=== PATIENT | male | born 2000 | race Caucasian/White ===

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

== ENCOUNTER 2020-07-14 19:52 | Inpatient (IN) | payer BC, OTHER ==
[~2020-07-14] VITALS: Ht 182.9 cm; Wt 64.5 kg
[2020-07-14] MEDS: K, MAG and/or Phos replacement - Verify level? MC SCH (09:00)
[~2020-07-14 19:52] MED LIST changes: +CLOB10TA3 PO; -CLOB2.5O PO; +CYAN100087 PO; +LACT10SO32 PO; -LEVO250S3 PO; +etomidate 2mg/ml inj. ONE; +rocuronium 10mg/ml inj IV ONE; +sod chloride 0.9% 10ml flush syringe IV ONE
[2020-07-14] MEDS ORDERED: levetiracetam inj 1,000 MG in normal saline 100ml IV soln 90 ML IV ONE (19:55)
[2020-07-14] MEDS ORDERED: normal saline 1000ML IV soln IVB ONE (19:55)
[2020-07-14] MEDS ORDERED: LORazepam 2 mg/ml vial IV ONE (19:55)
[2020-07-14] MEDS ORDERED: levetiracetam-NS 1000mg/100ml 100 ML IV ONE (19:57)
--- NOTE | 2020-07-14 20:03 | NUR ---
RT AND MD IN ROOM WITH SEVERAL RNS. RSI GOING TO BE PERFORMED. MD ORDERED ROCURONIUM 100MG ETOMIDATE 20 MG IV FOR RSI. PT HAS OPA IN AND BEING BVM WITH 100 % OXYGEN. HR 134 ST, RR 49 BP 134/71, SPO2 ON EAR, NOT A GOOD PLETH.
[2020-07-14] MEDS ORDERED: etomidate 2mg/ml inj. IV STA (20:06)
[2020-07-14] MEDS ORDERED: LORazepam 2 mg/ml vial IV STA (20:06)
[2020-07-14] MEDS ORDERED: rocuronium 10mg/ml inj IV STA (20:06)
[2020-07-14] MEDS ORDERED: propofol 1000mg/100ml bottle 100 ML IV PRN ×2 (20:10)
--- NOTE | 2020-07-14 20:12 | NUR ---
NOT ABLE TO VISUALIZE WITH THE GLIDESCOPE. REATTEMPTING. BEING BVM PER RT IN BETWEEN ATTEMPTS.
[2020-07-14 20:13] LABS: BASOPHILS # (AUTO) 0.1 X10'3 (0-0.2); MEAN CORPUSCULAR HEMOGLOBIN 32.7 PG (27.0-31.0); RED BLOOD COUNT 4.66 X10'6 (4.70-6.10)
[2020-07-14 20:14] LABS: BASOPHILS % (AUTO) 0.3 % (0-1); EOSINOPHILS % (AUTO) 0.1 % (0-6); HEMATOCRIT 46.2 % (42.0-52.0); HEMOGLOBIN 15.3 g/dl (14.0-17.9); LYMPHOCYTES # (AUTO) 2.2 X10'3 (1.1-4.8); LYMPHOCYTES % (AUTO) 10.5 % (21-51); MEAN CORPUSCULAR VOLUME 99.2 FL (78-98); MEAN PLATELET VOLUME 9.9 FL (7.4-10.4); MONOCYTES # (AUTO) 4.1 X10'3 (0-0.9); MONOCYTES % (AUTO) 19.8 % (2-12); NEUTROPHILS # (AUTO) 14.4 X10'3 (1.8-7.7); NEUTROPHILS % (AUTO) 69.3 % (42-75); PLATELET COUNT 272 X10'3 (140-440); WHITE BLOOD COUNT 20.8 X10'3 (4.5-11.0)
--- NOTE | 2020-07-14 20:20 | NUR ---
SPUTUM CX PER RT WILFRIDO OBTAINED. RADIOLOGY IN ROOM TO DO A CXR.
[2020-07-14] MEDS ORDERED: CefTRIAXone 2gm/D5W 50ml BAG 50 ML IV ONE (20:25)
[2020-07-14 20:27] LABS: ALANINE AMINOTRANSFERASE 15 U/L (12-78); ALBUMIN 3.5 G/DL (3.4-5.0); ALBUMIN/GLOBULIN RATIO 0.7 (1.1-1.5); ALKALINE PHOSPHATASE 67 IU/L (46-116); ANION GAP 22 (8-16); ASPARTATE AMINO TRANSFERASE 39 U/L (10-37); BILIRUBIN,TOTAL 1.3 MG/DL (0.1-1.0); BLOOD UREA NITROGEN 52 MG/DL (7-18); CALCIUM 10.3 MG/DL (8.5-10.1); CHLORIDE 105 MMOL/L (99-107); CREATININE 2.26 MG/DL (0.60-1.10); GLUCOSE 178 MG/DL (70-104); POTASSIUM 4.4 MMOL/L (3.5-5.1); SODIUM 149 MMOL/L (135-145); TOTAL CARBON DIOXIDE 22.4 MMOL/L (24-32); TOTAL PROTEIN 8.8 G/DL (6.4-8.2); eGFR 37 ML/MIN
[2020-07-14] MEDS ORDERED: normal saline 1000ml 1,000 ML IVB ONE (20:40)
[2020-07-14] MEDS ORDERED: azithromycin/NS 500mg/250ml 250 ML IV ONE (20:50)
[2020-07-14 21:00] LABS: CLARITY,URINE SLIGHTLY CLOUDY (Clear); GLUCOSE, URINE NEGATIVE (Neg); KETONES,URINE 15 mg/dl (Neg); LEUKOCYTE ESTERASE ,URINE NEGATIVE (Neg); NITRITES, URINE NEGATIVE (Neg); OCCULT BLOOD,URINE NEGATIVE (Neg); PROTEIN,URINE 100 mg/dl (Neg); UA COLLECTION TYPE FOLEY CATH
[2020-07-14 21:02] LABS: COLOR,URINE DARK YELLOW (Yellow)
[2020-07-14 21:05] LABS: ABG BASE EXCESS -6.4 mmol/L (-2.0-2.0); ABG HCO3 20.6 mmol/L (22.0-26.0); ABG OXYGEN SATURATION 94.7 % (94-97); ABG PCO2 (T) 46.6 mmHg (35.0-48.0); ABG PO2 (T) 86.2 mmHg (75.0-100.0); ALLEN'S TEST Modified; FCOHb 0.5 % (0.0-3.9); FMetHb 0.3 % (0.0-1.5); FO2Hb 93.9 % (94-97); PATIENT TEMPERATURE 37.1; PEEP 5 cm H2O; RESPIRATORY RATE 16 b/min; TIDAL VOLUME 400 mL; TOTAL HEMOGLOBIN 13.2 G/dl (14.0-18.0)
[2020-07-14 21:06] LABS: BACTERIA,URINE NONE SEEN /HPF (Neg); MUCUS STRANDS MANY /LPF (Neg); RBC,URINE NONE SEEN /HPF (0-2); SQUAMOUS EPITHELIAL CELL,UR FEW /LPF (FEW); WBC,URINE 0-4 /HPF (0-4)
[2020-07-14] MEDS ORDERED: dexamethasone sod phosphate 10mg/ml inj IV STA (21:10)
[2020-07-14 21:33] LABS: LARGE PLATELETS FEW; PLATELET ESTIMATE NORMAL; TOTAL CELLS COUNTED 100
[2020-07-14 21:34] LABS: TOXIC GRANULATION 1+; TOXIC VACUOLATION 1+
[2020-07-14] MEDS: vancomycin/NS 1 GM ADD-VANTAGE 250 ML IV SCH (21:46)
--- NOTE | 2020-07-14 22:04 | NUR ---
PATIENT RETURNED FORM CT. UNEVENTFUL. SEDATED PROPOFOL DOCUMENTED. DR MAN ATTEMPTING LUMBAR PUNCTURE. MOTHER AT BEDSIDE. RYAN WALKER IN ROOM TO ASSIST.
--- NOTE | 2020-07-14 22:06 | NUR ---
PAGED FREELANCE INTERPRETER/TRANSLATOR TO CLARIFY FLUID ORDERS FROM EARLIER TELE ICU VISIT ORDER TO BE PLACED BY FREELANCE INTERPRETER/TRANSLATOR THAT WAS GIVEN OVER TELE ICU DREliza HE IS AWARE PATIETN HAS RECEIVED 6 LITRES OF FLUID AND WILL WRITE FOR MAINTENANCE FLUID WELL REPEAT LABS.
[2020-07-14 22:21] LABS: URINE AMPHETAMINE SCREEN NEGATIVE (Neg); URINE BARBITUATE SCREEN NEGATIVE (Neg); URINE BENZODIAZEPINES SCREEN POSITIVE (Neg); URINE CANNABINOID SCREEN NEGATIVE (Neg); URINE COCAINE SCREEN NEGATIVE (Neg); URINE METHADONE SCREEN NEGATIVE (Neg); URINE OPIATE SCREEN NEGATIVE (Neg); URINE PHENCYCLIDINE SCREEN NEGATIVE (Neg)
[2020-07-14 22:42] LABS: ALBUMIN 2.2 G/DL (3.4-5.0); ANION GAP 13 (8-16); BLOOD UREA NITROGEN 45 MG/DL (7-18); BUN/CREATININE RATIO 29.6 (5.4-32.0); CREATININE 1.52 MG/DL (0.60-1.10); GLUCOSE 126 MG/DL (70-104); POTASSIUM 3.9 MMOL/L (3.5-5.1); TOTAL CARBON DIOXIDE 21.7 MMOL/L (24-32); eGFR 58 ML/MIN
[2020-07-14 22:51] LABS: SODIUM 153 MMOL/L (135-145)
[2020-07-14 22:52] LABS: CALCIUM 7.6 MG/DL (8.5-10.1); CHLORIDE 118 MMOL/L (99-107)
[2020-07-14 22:53] LABS: GLUCOSE,CSF 93 MG/DL (40-75); TOTAL PROTEIN,CSF 53 MG/DL (15-45)
[2020-07-14] MEDS ORDERED: PHENYLEPHRINE IV PRN (23:00)
[2020-07-14] MEDS ORDERED: potassium Cl 20mEq/100mL bag 100 ML IV PRN (23:00)
[2020-07-14] MEDS ORDERED: potassium Cl 40MEQ/250ML bag 250 ML IV PRN (23:00)
[2020-07-14] MEDS ORDERED: sodium phosphate inj. 15 MMOL in dextrose 5%-water 250 ML IV PRN (23:00)
[2020-07-14] MEDS ORDERED: ondansetron/PF 4mg/2ml inj IV PRN (23:00)
[2020-07-14] MEDS ORDERED: magnesium hydroxide 30ml (MOM) UD suspension PO PRN (23:00)
[2020-07-14] MEDS ORDERED: magnesium 4gm in 100ml NS 100 ML IV PRN (23:00)
[2020-07-14] MEDS ORDERED: acetaminophen 325mg tablet PO PRN ×2 (23:00)
[2020-07-14] MEDS ORDERED: magnesium 2GM in 50ml NS 50 ML IV PRN (23:00)
[2020-07-14] MEDS ORDERED: potassium CL 10mEq/100ml bag 100 ML IV PRN (23:00)
[2020-07-14] MEDS ORDERED: magnesium Cl slow-release 64mg tablet PO PRN (23:00)
[2020-07-14] MEDS ORDERED: potassium Cl 20 mEq SR tablet PO PRN ×5 (23:00)
[2020-07-14] MEDS ORDERED: NORMAL SALINE IV PRN (23:00)
[2020-07-14] MEDS ORDERED: Neutra Phos packet PO PRN (23:00)
[2020-07-14] MEDS ORDERED: sodium phosphate inj. 30 MMOL in dextrose 5%-water 250 ML IV PRN (23:00)
[2020-07-14 23:11] LABS: APPEARANCE,CSF CLEAR; CSF RBC 3 /CU MM (0); CSF SUPERNATANT COLOR COLORLESS; CSF VOLUME 7.5 ML; TUBE# COUNTED 4
[2020-07-14 23:22] LABS: CSF WBC CT 8 /CU MM (0-5)
[2020-07-14] MEDS ORDERED: ringers solution, lacted 1,000 ML IV ONE (23:55)
[2020-07-15] VITALS (27 sets, daily range): BP systolic 91–113; BP diastolic 47–74
[2020-07-15 00:15] LABS: PHOSPHORUS 6.3 MG/DL (2.3-4.5)
[2020-07-15] MEDS: propofol 1000mg/100ml bottle 100 ML IV SCH (00:41)
--- NOTE | 2020-07-15 00:45 | NUR ---
Patient in room CICU 2007. I have received report from JOSEPH Matthews,RN and had the opportunity to ask questions and assume patient care. Patient received from ER accompanied by 2RNs and preparatory technician. Patient on vent and has propofol running at 5mcg/kg/min. BP 99/64MMHG. Full assessment done as per chart. NG tube inserted and verified by 2 RNS and clamped.
[2020-07-15 04:34] LABS: ABG BASE EXCESS -3.8 mmol/L (-2.0-2.0); ABG HCO3 22.4 mmol/L (22.0-26.0); ABG OXYGEN SATURATION 91.9 % (94-97); ABG PO2 (T) 68.1 mmHg (75.0-100.0); FCOHb 0.3 % (0.0-3.9); FMetHb 0.4 % (0.0-1.5); FO2Hb 91.3 % (94-97); PATIENT TEMPERATURE 37.2; PEEP 5 cm H2O; RESPIRATORY RATE 16 b/min; TIDAL VOLUME 400 mL; TOTAL HEMOGLOBIN 12.1 G/dl (14.0-18.0)
[2020-07-15 06:27] LABS: BASOPHILS % (AUTO) 0.1 % (0-1); EOSINOPHILS % (AUTO) 0 % (0-6); HEMATOCRIT 36.1 % (42.0-52.0); HEMOGLOBIN 11.7 g/dl (14.0-17.9); LYMPHOCYTES # (AUTO) 1.1 X10'3 (1.1-4.8); LYMPHOCYTES % (AUTO) 9.1 % (21-51); MEAN CORPUSCULAR HEMOGLOBIN 32.8 PG (27.0-31.0); MEAN CORPUSCULAR HGB CONC 32.3 g/dL (33.0-36.5); MEAN CORPUSCULAR VOLUME 101.6 FL (78-98); MONOCYTES # (AUTO) 1.5 X10'3 (0-0.9); MONOCYTES % (AUTO) 12.1 % (2-12); NEUTROPHILS # (AUTO) 9.8 X10'3 (1.8-7.7); NEUTROPHILS % (AUTO) 78.7 % (42-75); PLATELET COUNT 179 X10'3 (140-440); RED BLOOD COUNT 3.56 X10'6 (4.70-6.10); RED CELL DISTRIBUTION WIDTH 13.5 % (11.5-14.5); WHITE BLOOD COUNT 12.5 X10'3 (4.5-11.0)
[2020-07-15 06:38] LABS: ALANINE AMINOTRANSFERASE 11 U/L (12-78); ALBUMIN 2.1 G/DL (3.4-5.0); ALBUMIN/GLOBULIN RATIO 0.6 (1.1-1.5); ALKALINE PHOSPHATASE 36 IU/L (46-116); ANION GAP 9 (8-16); ASPARTATE AMINO TRANSFERASE 25 U/L (10-37); BILIRUBIN,TOTAL 0.4 MG/DL (0.1-1.0); BLOOD UREA NITROGEN 31 MG/DL (7-18); BUN/CREATININE RATIO 32.3 (5.4-32.0); CALCIUM 7.9 MG/DL (8.5-10.1); CHLORIDE 118 MMOL/L (99-107); CREATININE 0.96 MG/DL (0.60-1.10); GLUCOSE 141 MG/DL (70-104); PHOSPHORUS 2.1 MG/DL (2.3-4.5); POTASSIUM 4.1 MMOL/L (3.5-5.1); SODIUM 151 MMOL/L (135-145); TOTAL CARBON DIOXIDE 24.5 MMOL/L (24-32); TOTAL PROTEIN 5.6 G/DL (6.4-8.2); TRIGLYCERIDES 58 MG/DL (20-135); eGFR > 90 ML/MIN
[2020-07-15] MEDS: vancomycin/NS 1 GM ADD-VANTAGE 250 ML IV SCH ×2 (07:28→20:02)
[2020-07-15] MEDS: famotidine/PF 10 mg/ml inj IV SCH (07:28)
[2020-07-15] MEDS: levetiracetam-NS 1000mg/100ml 100 ML IV SCH ×2 (07:28→20:02)
[2020-07-15 07:42] LABS: LARGE PLATELETS FEW; PLATELET ESTIMATE NORMAL; TOTAL CELLS COUNTED 100; TOXIC GRANULATION 1+; TOXIC VACUOLATION 1+
[2020-07-15] MEDS ORDERED: docusate sod 100mg capsule PO SCH (08:00)
[2020-07-15] MEDS: K, MAG and/or Phos replacement - Verify level? MC SCH (08:00)
[2020-07-15] MEDS ORDERED: K and/or MAG REPLACEMENT MC SCH (08:00)
[2020-07-15] MEDS: sodium chloride 0.45% 1,000 ML IV SCH ×3 (10:07→23:44)
[2020-07-15] MEDS ORDERED: docusate sodium 100mg/10ml UD cup PO SCH (10:40)
[2020-07-15] MEDS ORDERED: LACT10SO3 PO (10:48)
[2020-07-15] MEDS ORDERED: CYAN100087 PO (10:57)
[2020-07-15] MEDS ORDERED: DIAZ1KIT PR ×3 (11:00→11:03)
[2020-07-15] MEDS ORDERED: HEMP OIL SL (11:04)
[2020-07-15] MEDS: docusate sodium 100mg/10ml UD cup PO SCH ×2 (11:37→20:03)
[2020-07-15] MEDS: dexmedetomidine/D5W 100mL 100 ML IV SCH (12:20)
--- NOTE | 2020-07-15 16:09 | NUR ---
Intubated, sedated, presenting with seizures. No TF consult yet. Per MD note possible aspiration and right sided infiltrates. Will follow. Recommend: 1. TF if prolonged intubation 2. When extubated, recommend BSS prior to diet advancement 3. Weight per rx Addendum: 07/15/20 at [address] Amended: Links added.
[2020-07-15] MEDS ORDERED: atropine 0.1mg/ml 10ml syringe ONE (17:35)
--- NOTE | 2020-07-15 18:25 | NUR ---
Patient in room CICU 2007. I have received report from DENISE Foster and had the opportunity to ask questions and assume patient care.
--- NOTE | 2020-07-15 18:27 | NUR ---
Problems reprioritized. Patient report given, questions answered & plan of care reviewed with DENISE Torre.
[2020-07-15] MEDS: azithromycin/NS 500mg/250ml 250 ML IV SCH (20:02)
[2020-07-15] MEDS: lactobacillus rhamnosus 10,000 MMU CELLS/CAPSULE PO SCH (20:03)
[2020-07-15] MEDS: CefTRIAXone/D5W-Rocephin 1gm 50 ML IV SCH (21:23)
[2020-07-15] MEDS: sennosides/docusate sodium tablet PO SCH (21:23)
[2020-07-15] MEDS: LORazepam 2 mg/ml vial IV PRN (23:37)
--- NOTE | 2020-07-15 23:45 | NUR ---
Patient observed having a seizure lasting 1 and half minutes. Patient settled after receiving Ativan 2mg as per EMAR.
[2020-07-16] VITALS (23 sets, daily range): BP systolic 89–104; BP diastolic 51–66
[2020-07-16] MEDS: mineral oil/petrolatum ophthal oint EACHEYE SCH ×4 (02:17→22:05)
[2020-07-16 02:31] LABS: BASOPHILS % (AUTO) 0.2 % (0-1); EOSINOPHILS % (AUTO) 0 % (0-6); HEMATOCRIT 32.4 % (42.0-52.0); HEMOGLOBIN 10.6 g/dl (14.0-17.9); LYMPHOCYTES # (AUTO) 2.1 X10'3 (1.1-4.8); LYMPHOCYTES % (AUTO) 11.6 % (21-51); MEAN CORPUSCULAR HEMOGLOBIN 32.6 PG (27.0-31.0); MEAN CORPUSCULAR HGB CONC 32.7 g/dL (33.0-36.5); MEAN CORPUSCULAR VOLUME 99.5 FL (78-98); MEAN PLATELET VOLUME 10.6 FL (7.4-10.4); MONOCYTES # (AUTO) 1.7 X10'3 (0-0.9); MONOCYTES % (AUTO) 9.7 % (2-12); NEUTROPHILS # (AUTO) 14.1 X10'3 (1.8-7.7); NEUTROPHILS % (AUTO) 78.5 % (42-75); PLATELET COUNT 154 X10'3 (140-440); RED BLOOD COUNT 3.26 X10'6 (4.70-6.10); WHITE BLOOD COUNT 17.9 X10'3 (4.5-11.0)
[2020-07-16 02:38] LABS: ALANINE AMINOTRANSFERASE 16 U/L (12-78); ALBUMIN 1.9 G/DL (3.4-5.0); ALBUMIN/GLOBULIN RATIO 0.6 (1.1-1.5); ALKALINE PHOSPHATASE 34 IU/L (46-116); ANION GAP 10 (8-16); ASPARTATE AMINO TRANSFERASE 25 U/L (10-37); BILIRUBIN,TOTAL 0.4 MG/DL (0.1-1.0); BLOOD UREA NITROGEN 18 MG/DL (7-18); BUN/CREATININE RATIO 27.3 (5.4-32.0); CALCIUM 8.8 MG/DL (8.5-10.1); CHLORIDE 112 MMOL/L (99-107); CREATININE 0.66 MG/DL (0.60-1.10); GLUCOSE 129 MG/DL (70-104); MAGNESIUM 1.9 MG/DL (1.5-2.4); PHOSPHORUS 1.3 MG/DL (2.3-4.5); POTASSIUM 3.7 MMOL/L (3.5-5.1); SODIUM 144 MMOL/L (135-145); TOTAL PROTEIN 5.2 G/DL (6.4-8.2); eGFR > 90 ML/MIN
[2020-07-16] MEDS: magnesium 2GM in 50ml NS 50 ML IV PRN ×2 (03:24→05:53)
[2020-07-16 03:25] LABS: ABG BASE EXCESS -1.4 mmol/L (-2.0-2.0); ABG HCO3 21.4 mmol/L (22.0-26.0); ABG OXYGEN SATURATION 98.5 % (94-97); ABG PCO2 (T) 29.5 mmHg (35.0-48.0); ABG PO2 (T) 133.3 mmHg (75.0-100.0); FCOHb 0.2 % (0.0-3.9); FMetHb 0.3 % (0.0-1.5); PATIENT TEMPERATURE 36.6; PEEP 5 cm H2O; RESPIRATORY RATE 20 b/min; TIDAL VOLUME 400 mL; TOTAL HEMOGLOBIN 11.3 G/dl (14.0-18.0)
[2020-07-16] MEDS: potassium Cl 40MEQ/1/2NS 520ml 520 ML IV PRN (03:32)
--- NOTE | 2020-07-16 05:43 | NUR ---
Patient observed having a seizure lasting 2 minutes. Patient settled after receiving Ativan 2mg as per EMAR. Dr informed during rounds.
[2020-07-16] MEDS: LORazepam 2 mg/ml vial IV PRN ×4 (05:44→23:30)
[2020-07-16] MEDS: sodium chloride 0.45% 1,000 ML IV SCH ×3 (05:45→20:15)
[2020-07-16] MEDS: dexmedetomidine/D5W 100mL 100 ML IV SCH ×2 (06:04→12:21)
[2020-07-16 06:49] LABS: LARGE PLATELETS FEW; NUCLEATED RED BLOOD CELLS 2 /100WBC (0-0); PLATELET ESTIMATE NORMAL; TOTAL CELLS COUNTED 100; TOXIC GRANULATION 1+; TOXIC VACUOLATION 1+
[2020-07-16] MEDS ORDERED: VANCOMYCIN LEVEL IV ONE (07:30)
[2020-07-16] MEDS: levetiracetam-NS 1000mg/100ml 100 ML IV SCH (07:43)
[2020-07-16] MEDS: lactobacillus rhamnosus 10,000 MMU CELLS/CAPSULE PO SCH ×2 (07:43→22:18)
[2020-07-16] MEDS: famotidine/PF 10 mg/ml inj IV SCH (07:43)
[2020-07-16] MEDS: docusate sodium 100mg/10ml UD cup PO SCH ×2 (07:43→22:05)
[2020-07-16] MEDS: vancomycin/NS 1 GM ADD-VANTAGE 250 ML IV SCH ×2 (08:25→22:05)
[2020-07-16 08:57] LABS: VANCOMYCIN,TROUGH 5.9 UG/ML (6.0-14.0)
[2020-07-16] MEDS: K, MAG and/or Phos replacement - Verify level? MC SCH (08:58)
[2020-07-16] MEDS ORDERED: sodium phosphate inj. 15 MMOL in dextrose 5%-water 250 ML IV PRN (10:45)
[2020-07-16] MEDS ORDERED: sodium phosphate inj. 30 MMOL in dextrose 5%-water 250 ML IV PRN (10:45)
[2020-07-16] MEDS ORDERED: Neutra Phos packet PO PRN (10:45)
[2020-07-16] MEDS ORDERED: valproate sod 250mg/5ml UD oral syrup NG ONE ×2 (10:50→11:10)
[2020-07-16 11:02] LABS: PHOSPHORUS 1.7 MG/DL (2.3-4.5)
[2020-07-16] MEDS ORDERED: valproate sod 250mg/5ml UD oral syrup NG SCH ×3 (12:00→20:00)
[2020-07-16] MEDS: valproate sod 250mg/5ml UD oral syrup NG SCH (17:29)
--- NOTE | 2020-07-16 18:33 | NUR ---
Problems reprioritized. Patient report given, questions answered & plan of care reviewed with DENISE Pickering.
[2020-07-16] MEDS: azithromycin/NS 500mg/250ml 250 ML IV SCH (20:59)
[2020-07-16] MEDS: sennosides/docusate sodium tablet PO SCH (22:05)
[2020-07-16] MEDS: CefTRIAXone/D5W-Rocephin 1gm 50 ML IV SCH (22:06)
[2020-07-16] MEDS ORDERED: bisacodyl 10mg suppository rectal RC PRN (23:00)
[2020-07-16] MEDS: propofol 1000mg/100ml bottle 100 ML IV SCH (23:00)
[2020-07-16] MEDS ORDERED: polyethylene glycol 3350 17gm powd pack PO PRN (23:00)
[2020-07-17] VITALS (24 sets, daily range): BP systolic 89–102; BP diastolic 53–64
[2020-07-17] MEDS: valproate sod 250mg/5ml UD oral syrup NG SCH ×3 (00:09→16:21)
[2020-07-17] MEDS ORDERED: LORazepam 2 mg/ml vial IV ONE (02:35)
[2020-07-17] MEDS: LORazepam 2 mg/ml vial IV PRN ×5 (02:44→22:17)
[2020-07-17] MEDS: mineral oil/petrolatum ophthal oint EACHEYE SCH ×4 (02:49→21:01)
[2020-07-17 03:53] LABS: ABG BASE EXCESS -1.8 mmol/L (-2.0-2.0); ABG HCO3 21.9 mmol/L (22.0-26.0); ABG OXYGEN SATURATION 96.6 % (94-97); ABG PCO2 (T) 33.2 mmHg (35.0-48.0); ABG PO2 (T) 88.4 mmHg (75.0-100.0); ALLEN'S TEST POSITIVE; FCOHb 0.3 % (0.0-3.9); FMetHb 0.2 % (0.0-1.5); FO2Hb 96.1 % (94-97); PATIENT TEMPERATURE 36.7; PEEP 5 cm H2O; RESPIRATORY RATE 16 b/min; TIDAL VOLUME 400 mL; TOTAL HEMOGLOBIN 11.8 G/dl (14.0-18.0)
[2020-07-17] MEDS: dexmedetomidine/D5W 100mL 100 ML IV SCH ×2 (05:27→22:39)
[2020-07-17 06:03] LABS: BASOPHILS # (AUTO) 0.1 X10'3 (0-0.2); BASOPHILS % (AUTO) 0.6 % (0-1); EOSINOPHILS # (AUTO) 0.1 X10'3 (0-0.9); EOSINOPHILS % (AUTO) 0.6 % (0-6); HEMATOCRIT 38.1 % (42.0-52.0); HEMOGLOBIN 12.4 g/dl (14.0-17.9); MEAN CORPUSCULAR HEMOGLOBIN 32.6 PG (27.0-31.0); MEAN CORPUSCULAR HGB CONC 32.5 g/dL (33.0-36.5); MEAN CORPUSCULAR VOLUME 100.1 FL (78-98); MONOCYTES # (AUTO) 1.4 X10'3 (0-0.9); MONOCYTES % (AUTO) 7.2 % (2-12); NEUTROPHILS # (AUTO) 14.2 X10'3 (1.8-7.7); NEUTROPHILS % (AUTO) 75.6 % (42-75); PLATELET COUNT 190 X10'3 (140-440); RED BLOOD COUNT 3.81 X10'6 (4.70-6.10); RED CELL DISTRIBUTION WIDTH 13.3 % (11.5-14.5); WHITE BLOOD COUNT 18.8 X10'3 (4.5-11.0)
[2020-07-17 06:10] LABS: GLUCOSE 92 MG/DL (70-104); SODIUM 144 MMOL/L (135-145)
[2020-07-17 06:11] LABS: ALANINE AMINOTRANSFERASE 10 U/L (12-78); ALBUMIN 1.9 G/DL (3.4-5.0); ALBUMIN/GLOBULIN RATIO 0.5 (1.1-1.5); ALKALINE PHOSPHATASE 43 IU/L (46-116); ANION GAP 10 (8-16); ASPARTATE AMINO TRANSFERASE 23 U/L (10-37); BILIRUBIN,TOTAL 0.3 MG/DL (0.1-1.0); BLOOD UREA NITROGEN 11 MG/DL (7-18); CALCIUM 8.3 MG/DL (8.5-10.1); CHLORIDE 110 MMOL/L (99-107); CREATININE 0.61 MG/DL (0.60-1.10); MAGNESIUM 1.9 MG/DL (1.5-2.4); PHOSPHORUS 2.4 MG/DL (2.3-4.5); POTASSIUM 3.4 MMOL/L (3.5-5.1); TOTAL CARBON DIOXIDE 24.4 MMOL/L (24-32); TOTAL PROTEIN 5.4 G/DL (6.4-8.2); eGFR > 90 ML/MIN
--- NOTE | 2020-07-17 06:30 | NUR ---
Patient in room CICU 2007. I have received report from DENISE Pickering and had the opportunity to ask questions and assume patient care.
[2020-07-17] MEDS ORDERED: VANCOMYCIN LEVEL IV ONE (07:30)
[2020-07-17] MEDS: K, MAG and/or Phos replacement - Verify level? MC SCH (08:00)
[2020-07-17] MEDS ORDERED: vancomycin/NS 1 GM ADD-VANTAGE 250 ML IV SCH (08:00)
[2020-07-17] MEDS: sodium chloride 0.45% 1,000 ML IV SCH (08:13)
[2020-07-17] MEDS: docusate sodium 100mg/10ml UD cup PO SCH (09:06)
[2020-07-17] MEDS: vancomycin/NS 1 GM ADD-VANTAGE 250 ML IV SCH (09:06)
[2020-07-17] MEDS: lactobacillus rhamnosus 10,000 MMU CELLS/CAPSULE PO SCH (09:06)
[2020-07-17] MEDS: famotidine/PF 10 mg/ml inj IV SCH (09:09)
--- NOTE | 2020-07-17 09:24 | NUR ---
Pt had tonic-clonic seizure 3 min duration, pupils dilated L 5mm right 4 mm, arms contacted, back arched, left upward gaze. 2 mg ativan administered.
--- NOTE | 2020-07-17 10:00 | NUR ---
Pt had another tonic clonic seizure seizure 3 mins in duration. Pupils dilated left, 5mm greater than right 5mm. Reactive to light and consensual. Left upward gaze. Dr Rodriguez aware.
[2020-07-17] MEDS ORDERED: phenobarbital sod 130mg/ml inj. IV ONE (10:55)
[2020-07-17 11:19] LABS: TOTAL CELLS COUNTED 100
[2020-07-17 11:20] LABS: PLATELET ESTIMATE NORMAL; STOMATOCYTES FEW; TEAR DROP CELLS FEW
[2020-07-17 11:21] LABS: LARGE PLATELETS FEW
[2020-07-17] MEDS ORDERED: magnesium 2GM in 50ml NS 50 ML IV ONE (11:50)
[2020-07-17] MEDS: enoxaparin 40mg/0.4ml syringe SUBCUT SCH (11:56)
--- NOTE | 2020-07-17 11:59 | NUR ---
TF Consult: Pt intubated DX status epilepticus, PNA, and pneumonitis w/ TF to start today per production sorter. TF recs below using IBW to optimize needs w/ chronic low wt status. LBM 3/3 receiving routine colace and senna. Will monitor for TF tolerance and additional protein/kcal needs. Recommend: 1. NGTF per MD using Vital AF at 75ml/hr goal; to provide 1800ml volume, 1458ml free water, 2160kcals, and 135g protein. 2. additional water flush 200ml Q4 3. PALB Q /; daily wts 4. Upon extubation, recommend BSS prior to regular diet advancement Addendum: 07/17/20 at [address] Amended: Links added.
--- NOTE | 2020-07-17 12:00 | NUR ---
Pt experienced another tonic clonic seizure 2 mins, dilated pupils left 5 mm, right 4 mm. contracted extremities, rapid respiratory rate. phenobarbitol loading dose administered.
--- NOTE | 2020-07-17 12:18 | NUR ---
Pt experienced another tonic clonic seizure 2 mins, dilated pupils left 5 mm, right 4 mm. contracted extremities, rapid respiratory rate. phenobarbitol loading dose administered.
[2020-07-17] MEDS ORDERED: acetaminophen 325mg/10.15ml oral unit dose solution OGT PRN ×2 (12:35)
[2020-07-17] MEDS ORDERED: magnesium hydroxide 30ml (MOM) UD suspension OGT PRN (12:41)
[2020-07-17] MEDS ORDERED: Neutra Phos packet OGT PRN (12:43)
[2020-07-17] MEDS ORDERED: phenobarbital 30mg tablet PO SCH (13:00)
[2020-07-17] MEDS ORDERED: polyethylene glycol 3350 17gm powd pack OGT PRN (14:11)
[2020-07-17] MEDS ORDERED: potassium Cl 20 mEq SR tablet OGT PRN ×2 (14:11)
[2020-07-17] MEDS ORDERED: valproate sod 250mg/5ml UD oral syrup OGT SCH (14:12)
--- NOTE | 2020-07-17 18:18 | NUR ---
Problems reprioritized. Patient report given, questions answered & plan of care reviewed with DENISE Pickering.
[2020-07-17] MEDS ORDERED: enoxaparin 30mg/0.3ml syringe SUBCUT SCH (20:00)
[2020-07-17] MEDS: lactobacillus rhamnosus 10,000 MMU CELLS/CAPSULE OGT SCH (21:00)
[2020-07-17] MEDS: CefTRIAXone/D5W-Rocephin 1gm 50 ML IV SCH (21:00)
[2020-07-17] MEDS: docusate sodium 100mg/10ml UD cup OGT SCH (21:00)
[2020-07-17] MEDS: phenobarbital 30mg tablet OGT SCH (21:00)
[2020-07-17] MEDS: azithromycin/NS 500mg/250ml 250 ML IV SCH (21:00)
[2020-07-17] MEDS: sennosides/docusate sodium tablet OGT SCH (21:00)
[2020-07-17] MEDS: VANCOmycin 1250MG/NS 250ml Bag 250 ML IV SCH (21:01)
[2020-07-17] MEDS ORDERED: POTASSIUM BICARB 20meq eff tab 20 MEQ TABLET.EFF OGT PRN (21:25)
[2020-07-18] VITALS (24 sets, daily range): BP systolic 93–130; BP diastolic 50–85
[2020-07-18] MEDS: POTASSIUM BICARB 20meq eff tab 20 MEQ TABLET.EFF OGT PRN ×2 (00:01→05:03)
[2020-07-18] MEDS: valproate sod 250mg/5ml UD oral syrup NG SCH ×3 (00:06→16:58)
[2020-07-18 03:22] LABS: ABG BASE EXCESS 1.3 mmol/L (-2.0-2.0); ABG HCO3 26.5 mmol/L (22.0-26.0); ABG OXYGEN SATURATION 97.4 % (94-97); ABG PCO2 (T) 43.7 mmHg (35.0-48.0); ABG PO2 (T) 99.5 mmHg (75.0-100.0); ALLEN'S TEST POSITIVE; FCOHb 0.3 % (0.0-3.9); FMetHb 0.2 % (0.0-1.5); FO2Hb 96.9 % (94-97); PATIENT TEMPERATURE 36.7; PEEP 5 cm H2O; RESPIRATORY RATE 12 b/min; TIDAL VOLUME 400 mL; TOTAL HEMOGLOBIN 11.7 G/dl (14.0-18.0)
[2020-07-18] MEDS: mineral oil/petrolatum ophthal oint EACHEYE SCH ×4 (05:02→21:34)
[2020-07-18 06:11] LABS: BASOPHILS # (AUTO) 0.1 X10'3 (0-0.2); BASOPHILS % (AUTO) 0.4 % (0-1); EOSINOPHILS # (AUTO) 0.4 X10'3 (0-0.9); EOSINOPHILS % (AUTO) 2.5 % (0-6); HEMATOCRIT 34.5 % (42.0-52.0); HEMOGLOBIN 11.3 g/dl (14.0-17.9); LYMPHOCYTES # (AUTO) 2.9 X10'3 (1.1-4.8); LYMPHOCYTES % (AUTO) 19.6 % (21-51); MEAN CORPUSCULAR HEMOGLOBIN 32.8 PG (27.0-31.0); MEAN CORPUSCULAR HGB CONC 32.8 g/dL (33.0-36.5); MEAN CORPUSCULAR VOLUME 99.8 FL (78-98); MEAN PLATELET VOLUME 11.1 FL (7.4-10.4); MONOCYTES # (AUTO) 1.4 X10'3 (0-0.9); MONOCYTES % (AUTO) 9.5 % (2-12); PLATELET COUNT 208 X10'3 (140-440); RED BLOOD COUNT 3.46 X10'6 (4.70-6.10); WHITE BLOOD COUNT 14.7 X10'3 (4.5-11.0)
[2020-07-18 06:12] LABS: ALANINE AMINOTRANSFERASE 13 U/L (12-78); ALBUMIN 1.7 G/DL (3.4-5.0); ALBUMIN/GLOBULIN RATIO 0.5 (1.1-1.5); ALKALINE PHOSPHATASE 44 IU/L (46-116); ANION GAP 8 (8-16); ASPARTATE AMINO TRANSFERASE 13 U/L (10-37); BILIRUBIN,TOTAL 0.3 MG/DL (0.1-1.0); BLOOD UREA NITROGEN 4 MG/DL (7-18); CALCIUM 8.6 MG/DL (8.5-10.1); CHLORIDE 109 MMOL/L (99-107); CREATININE 0.57 MG/DL (0.60-1.10); GLUCOSE 86 MG/DL (70-104); MAGNESIUM 1.8 MG/DL (1.5-2.4); PHOSPHORUS 3.7 MG/DL (2.3-4.5); PREALBUMIN 11.9 MG/DL (19-36); SODIUM 145 MMOL/L (135-145); TOTAL CARBON DIOXIDE 28.4 MMOL/L (24-32); TOTAL PROTEIN 5.2 G/DL (6.4-8.2); VALPROATE 51 UG/ML (50-100); eGFR > 90 ML/MIN
[2020-07-18 06:16] LABS: POTASSIUM 2.9 MMOL/L (3.5-5.1)
[2020-07-18] MEDS: potassium Cl 40MEQ/1/2NS 520ml 520 ML IV PRN ×2 (06:50→11:51)
[2020-07-18] MEDS: K, MAG and/or Phos replacement - Verify level? MC SCH (08:00)
[2020-07-18] MEDS: LORazepam 2 mg/ml vial IV PRN ×2 (08:15→12:06)
[2020-07-18] MEDS: phenobarbital 30mg tablet OGT SCH ×3 (08:34→21:31)
[2020-07-18] MEDS: famotidine/PF 10 mg/ml inj IV SCH (08:34)
[2020-07-18] MEDS: lactobacillus rhamnosus 10,000 MMU CELLS/CAPSULE OGT SCH ×2 (08:34→21:31)
[2020-07-18] MEDS: VANCOmycin 1250MG/NS 250ml Bag 250 ML IV SCH ×2 (08:34→21:31)
[2020-07-18] MEDS: docusate sodium 100mg/10ml UD cup OGT SCH ×2 (08:34→21:31)
[2020-07-18] MEDS: enoxaparin 40mg/0.4ml syringe SUBCUT SCH (08:35)
[2020-07-18 09:55] LABS: NUCLEATED RED BLOOD CELLS 1 /100WBC (0-0); TOTAL CELLS COUNTED 100
[2020-07-18 09:56] LABS: PLATELET ESTIMATE NORMAL
[2020-07-18] MEDS ORDERED: DIAZEPAM PR PRN (10:40)
[2020-07-18] MEDS ORDERED: lactulose 20gm/30ml cup PO PRN (10:40)
[2020-07-18] MEDS: dexmedetomidine/D5W 100mL 100 ML IV SCH (11:53)
[2020-07-18] MEDS: midazolam 100mg in NS 100ml 100 ML IV SCH ×2 (12:21→21:10)
[2020-07-18] MEDS ORDERED: valproate sod 250mg/5ml UD oral syrup PO SCH ×2 (13:00→21:50)
--- NOTE | 2020-07-18 18:30 | NUR ---
Patient in room CICU 2007. I have received report from JESU WALKER and had the opportunity to ask questions and assume patient care.
[2020-07-18] MEDS ORDERED: HEMP OIL SL SCH (21:00)
[2020-07-18] MEDS: azithromycin/NS 500mg/250ml 250 ML IV SCH (21:31)
[2020-07-18] MEDS: CefTRIAXone/D5W-Rocephin 1gm 50 ML IV SCH (21:31)
[2020-07-18] MEDS: sennosides/docusate sodium tablet OGT SCH (21:31)
[2020-07-18] MEDS: propofol 1000mg/100ml bottle 100 ML IV SCH (22:38)
[2020-07-19] VITALS (23 sets, daily range): BP systolic 108–155; BP diastolic 61–88
[2020-07-19] MEDS: mineral oil/petrolatum ophthal oint EACHEYE SCH ×4 (02:42→20:00)
[2020-07-19] MEDS: midazolam 100mg in NS 100ml 100 ML IV SCH ×3 (02:43→19:27)
[2020-07-19 03:01] LABS: ABG HCO3 25.3 mmol/L (22.0-26.0); ABG OXYGEN SATURATION 96.8 % (94-97); ABG PCO2 (T) 36.4 mmHg (35.0-48.0); ABG PO2 (T) 92.3 mmHg (75.0-100.0); ALLEN'S TEST POSITIVE; FCOHb 0.3 % (0.0-3.9); FMetHb 0.2 % (0.0-1.5); FO2Hb 96.3 % (94-97); PATIENT TEMPERATURE 37.7; PEEP 5 cm H2O; RESPIRATORY RATE 12 b/min; TIDAL VOLUME 400 mL; TOTAL HEMOGLOBIN 12.3 G/dl (14.0-18.0)
[2020-07-19] MEDS: valproate sod 250mg/5ml UD oral syrup NG SCH ×3 (04:56→20:04)
--- NOTE | 2020-07-19 06:51 | NUR ---
Problems reprioritized. Patient report given, questions answered & plan of care reviewed with LAURA WALKER.
[2020-07-19] MEDS: LORazepam 2 mg/ml vial IV PRN ×2 (06:56→11:45)
[2020-07-19] MEDS: lactobacillus rhamnosus 10,000 MMU CELLS/CAPSULE OGT SCH ×2 (07:22→20:03)
[2020-07-19] MEDS: phenobarbital 30mg tablet OGT SCH ×3 (07:23→20:04)
[2020-07-19] MEDS: famotidine/PF 10 mg/ml inj IV SCH (07:23)
[2020-07-19] MEDS: cyanocobalamin 500mcg tablet PO SCH (07:23)
[2020-07-19] MEDS: enoxaparin 40mg/0.4ml syringe SUBCUT SCH (07:24)
[2020-07-19] MEDS ORDERED: VANCOMYCIN LEVEL IV ONE (07:30)
[2020-07-19] MEDS: docusate sodium 100mg/10ml UD cup OGT SCH ×2 (07:54→20:03)
[2020-07-19] MEDS: K, MAG and/or Phos replacement - Verify level? MC SCH (08:00)
[2020-07-19 08:31] LABS: BASOPHILS % (AUTO) 0.3 % (0-1); EOSINOPHILS # (AUTO) 0.2 X10'3 (0-0.9); EOSINOPHILS % (AUTO) 1.1 % (0-6); HEMATOCRIT 36.6 % (42.0-52.0); HEMOGLOBIN 11.9 g/dl (14.0-17.9); LYMPHOCYTES # (AUTO) 2.4 X10'3 (1.1-4.8); LYMPHOCYTES % (AUTO) 14.2 % (21-51); MEAN CORPUSCULAR HEMOGLOBIN 32.2 PG (27.0-31.0); MEAN CORPUSCULAR HGB CONC 32.6 g/dL (33.0-36.5); MEAN CORPUSCULAR VOLUME 98.6 FL (78-98); MEAN PLATELET VOLUME 10.5 FL (7.4-10.4); MONOCYTES # (AUTO) 2.1 X10'3 (0-0.9); MONOCYTES % (AUTO) 12.4 % (2-12); PLATELET COUNT 251 X10'3 (140-440); RED BLOOD COUNT 3.71 X10'6 (4.70-6.10); RED CELL DISTRIBUTION WIDTH 13.2 % (11.5-14.5); WHITE BLOOD COUNT 16.6 X10'3 (4.5-11.0)
[2020-07-19 08:52] LABS: ALANINE AMINOTRANSFERASE 16 U/L (12-78); ALBUMIN 2.2 G/DL (3.4-5.0); ALBUMIN/GLOBULIN RATIO 0.6 (1.1-1.5); ALKALINE PHOSPHATASE 55 IU/L (46-116); ANION GAP 9 (8-16); ASPARTATE AMINO TRANSFERASE 15 U/L (10-37); BILIRUBIN,TOTAL 0.2 MG/DL (0.1-1.0); BLOOD UREA NITROGEN 5 MG/DL (7-18); BUN/CREATININE RATIO 8.2 (5.4-32.0); CALCIUM 9.1 MG/DL (8.5-10.1); CHLORIDE 104 MMOL/L (99-107); CREATININE 0.61 MG/DL (0.60-1.10); GLUCOSE 114 MG/DL (70-104); MAGNESIUM 1.9 MG/DL (1.5-2.4); PHOSPHORUS 3.8 MG/DL (2.3-4.5); POTASSIUM 3.4 MMOL/L (3.5-5.1); SODIUM 141 MMOL/L (135-145); TOTAL CARBON DIOXIDE 27.9 MMOL/L (24-32); TOTAL PROTEIN 6.2 G/DL (6.4-8.2); eGFR > 90 ML/MIN
[2020-07-19] MEDS: VANCOmycin 1250MG/NS 250ml Bag 250 ML IV SCH (09:13)
[2020-07-19 09:24] LABS: TOTAL CELLS COUNTED 100
[2020-07-19 09:25] LABS: PLATELET ESTIMATE NORMAL
[2020-07-19] MEDS: POTASSIUM BICARB 20meq eff tab 20 MEQ TABLET.EFF OGT PRN ×3 (11:07→20:04)
[2020-07-19] MEDS: vancomycin/NS 1 GM ADD-VANTAGE 250 ML X 1 DOSE IV SCH (15:20)
--- NOTE | 2020-07-19 18:08 | NUR ---
Problems reprioritized. Patient report given, questions answered & plan of care reviewed with DENISE Otero.
[2020-07-19] MEDS: azithromycin/NS 500mg/250ml 250 ML IV SCH (19:46)
[2020-07-19] MEDS: sennosides/docusate sodium tablet OGT SCH (20:04)
[2020-07-19] MEDS: CefTRIAXone/D5W-Rocephin 1gm 50 ML IV SCH (22:40)
[2020-07-20] VITALS (24 sets, daily range): BP systolic 97–145; BP diastolic 54–106
[2020-07-20] MEDS: vancomycin/NS 1 GM ADD-VANTAGE 250 ML X 1 DOSE IV SCH ×2 (00:44→07:56)
[2020-07-20] MEDS: midazolam 100mg in NS 100ml 100 ML IV SCH ×3 (01:24→15:32)
[2020-07-20] MEDS: mineral oil/petrolatum ophthal oint EACHEYE SCH ×4 (01:24→20:00)
[2020-07-20 05:45] LABS: ABG BASE EXCESS 1.4 mmol/L (-2.0-2.0); ABG HCO3 24.9 mmol/L (22.0-26.0); ABG OXYGEN SATURATION 94.4 % (94-97); ABG PCO2 (T) 35.9 mmHg (35.0-48.0); ABG PO2 (T) 73.8 mmHg (75.0-100.0); FCOHb 0.3 % (0.0-3.9); FMetHb 0.4 % (0.0-1.5); FO2Hb 93.7 % (94-97); PATIENT TEMPERATURE 37.3; PEEP 5 cm H2O; RESPIRATORY RATE 12 b/min; TIDAL VOLUME 400 mL; TOTAL HEMOGLOBIN 12.4 G/dl (14.0-18.0)
[2020-07-20] MEDS: valproate sod 250mg/5ml UD oral syrup NG SCH ×3 (06:25→21:19)
[2020-07-20 06:30] LABS: BASOPHILS % (AUTO) 0.2 % (0-1); EOSINOPHILS # (AUTO) 0.3 X10'3 (0-0.9); EOSINOPHILS % (AUTO) 2.2 % (0-6); HEMATOCRIT 35.9 % (42.0-52.0); HEMOGLOBIN 11.8 g/dl (14.0-17.9); LYMPHOCYTES # (AUTO) 2.4 X10'3 (1.1-4.8); LYMPHOCYTES % (AUTO) 16.4 % (21-51); MEAN CORPUSCULAR HEMOGLOBIN 32.4 PG (27.0-31.0); MEAN CORPUSCULAR HGB CONC 32.8 g/dL (33.0-36.5); MEAN PLATELET VOLUME 10.8 FL (7.4-10.4); MONOCYTES # (AUTO) 2.6 X10'3 (0-0.9); MONOCYTES % (AUTO) 17.3 % (2-12); NEUTROPHILS # (AUTO) 9.5 X10'3 (1.8-7.7); NEUTROPHILS % (AUTO) 63.9 % (42-75); PLATELET COUNT 301 X10'3 (140-440); RED BLOOD COUNT 3.63 X10'6 (4.70-6.10); RED CELL DISTRIBUTION WIDTH 13.5 % (11.5-14.5); WHITE BLOOD COUNT 14.9 X10'3 (4.5-11.0)
[2020-07-20 06:38] LABS: ALANINE AMINOTRANSFERASE 15 U/L (12-78); ALBUMIN 2.3 G/DL (3.4-5.0); ALBUMIN/GLOBULIN RATIO 0.5 (1.1-1.5); ALKALINE PHOSPHATASE 52 IU/L (46-116); ANION GAP 9 (8-16); ASPARTATE AMINO TRANSFERASE 12 U/L (10-37); BILIRUBIN,TOTAL 0.2 MG/DL (0.1-1.0); BLOOD UREA NITROGEN 6 MG/DL (7-18); BUN/CREATININE RATIO 10.3 (5.4-32.0); CALCIUM 9.4 MG/DL (8.5-10.1); CHLORIDE 104 MMOL/L (99-107); CREATININE 0.58 MG/DL (0.60-1.10); GLUCOSE 110 MG/DL (70-104); MAGNESIUM 1.9 MG/DL (1.5-2.4); PHOSPHORUS 4.7 MG/DL (2.3-4.5); POTASSIUM 3.7 MMOL/L (3.5-5.1); SODIUM 141 MMOL/L (135-145); TOTAL CARBON DIOXIDE 28.1 MMOL/L (24-32); TOTAL PROTEIN 6.5 G/DL (6.4-8.2); VALPROATE 58 UG/ML (50-100); eGFR > 90 ML/MIN
[2020-07-20 07:34] LABS: TOTAL CELLS COUNTED 100
[2020-07-20 07:35] LABS: PLATELET ESTIMATE NORMAL
[2020-07-20 07:36] LABS: LARGE PLATELETS FEW
[2020-07-20] MEDS: famotidine/PF 10 mg/ml inj IV SCH (07:55)
[2020-07-20] MEDS: lactobacillus rhamnosus 10,000 MMU CELLS/CAPSULE OGT SCH ×2 (07:55→21:19)
[2020-07-20] MEDS: enoxaparin 40mg/0.4ml syringe SUBCUT SCH (07:55)
[2020-07-20] MEDS: phenobarbital 30mg tablet OGT SCH (07:55)
[2020-07-20] MEDS: cyanocobalamin 500mcg tablet PO SCH (07:56)
[2020-07-20] MEDS: docusate sodium 100mg/10ml UD cup OGT SCH ×2 (08:00→20:00)
[2020-07-20] MEDS: K, MAG and/or Phos replacement - Verify level? MC SCH (08:36)
--- NOTE | 2020-07-20 11:47 | NUR ---
Reassessment: Pt intubated, sedated status epilepticus, PNA, and pneumonitis. TF recs calculated using IBW to optimize needs on the vent. Last BM 07/19, documented as large, liquid stool; likely r/t receiving routine colace and senna. Gastric residual volume under 310 ml. Meeting nutrition needs on vent. Recommend: 1. NGTF per MD using Vital AF at 75ml/hr goal; to provide 1800ml volume, 1458ml free water, 2160kcals, and 135g protein. 2. additional water flush 200ml Q4 3. PALB Q /; daily wts 4. Upon extubation, recommend BSS prior to regular diet advancement Addendum: 07/20/20 at [address] Amended: Links added.
[2020-07-20] MEDS ORDERED: VANCOMYCIN LEVEL IV ONE (15:30)
--- NOTE | 2020-07-20 18:04 | NUR ---
Problems reprioritized. Patient report given, questions answered & plan of care reviewed with DENISE Rowell.
[2020-07-20] MEDS: CefTRIAXone/D5W-Rocephin 1gm 50 ML IV SCH (21:19)
[2020-07-20] MEDS: sennosides/docusate sodium tablet OGT SCH (21:19)
[2020-07-21] VITALS (24 sets, daily range): BP systolic 97–161; BP diastolic 54–98
[2020-07-21] MEDS ORDERED: dexmedetomidin/NS 400mcg/100ml 100 ML IV SCH (05:20)
[2020-07-21 05:41] LABS: ABG BASE EXCESS -0.1 mmol/L (-2.0-2.0); ABG HCO3 23.6 mmol/L (22.0-26.0); ABG OXYGEN SATURATION 95.8 % (94-97); ABG PCO2 (T) 35.7 mmHg (35.0-48.0); ABG PO2 (T) 80.7 mmHg (75.0-100.0); FCOHb 0.3 % (0.0-3.9); FMetHb 0.3 % (0.0-1.5); FO2Hb 95.2 % (94-97); PATIENT TEMPERATURE 37.2; PEEP 5 cm H2O; RESPIRATORY RATE 12 b/min; TIDAL VOLUME 400 mL; TOTAL HEMOGLOBIN 12.6 G/dl (14.0-18.0)
[2020-07-21 05:46] LABS: ALANINE AMINOTRANSFERASE 15 U/L (12-78); ALBUMIN 2.5 G/DL (3.4-5.0); ALBUMIN/GLOBULIN RATIO 0.6 (1.1-1.5); ALKALINE PHOSPHATASE 59 IU/L (46-116); ANION GAP 5 (8-16); ASPARTATE AMINO TRANSFERASE 12 U/L (10-37); BASOPHILS % (AUTO) 0.2 % (0-1); BILIRUBIN,TOTAL 0.2 MG/DL (0.1-1.0); BLOOD UREA NITROGEN 8 MG/DL (7-18); BUN/CREATININE RATIO 13.3 (5.4-32.0); CALCIUM 9.5 MG/DL (8.5-10.1); CHLORIDE 103 MMOL/L (99-107); EOSINOPHILS # (AUTO) 0.6 X10'3 (0-0.9); EOSINOPHILS % (AUTO) 3.1 % (0-6); GLUCOSE 100 MG/DL (70-104); HEMATOCRIT 38.4 % (42.0-52.0); HEMOGLOBIN 12.4 g/dl (14.0-17.9); LYMPHOCYTES # (AUTO) 2.9 X10'3 (1.1-4.8); LYMPHOCYTES % (AUTO) 15.6 % (21-51); MAGNESIUM 2.1 MG/DL (1.5-2.4); MEAN CORPUSCULAR HEMOGLOBIN 31.9 PG (27.0-31.0); MEAN CORPUSCULAR HGB CONC 32.4 g/dL (33.0-36.5); MEAN CORPUSCULAR VOLUME 98.5 FL (78-98); MEAN PLATELET VOLUME 10.3 FL (7.4-10.4); MONOCYTES # (AUTO) 3.5 X10'3 (0-0.9); NEUTROPHILS # (AUTO) 11.4 X10'3 (1.8-7.7); NEUTROPHILS % (AUTO) 62.1 % (42-75); PHOSPHORUS 4.4 MG/DL (2.3-4.5); PLATELET COUNT 436 X10'3 (140-440); POTASSIUM 4.8 MMOL/L (3.5-5.1); RED CELL DISTRIBUTION WIDTH 13.5 % (11.5-14.5); SODIUM 136 MMOL/L (135-145); TOTAL CARBON DIOXIDE 28.3 MMOL/L (24-32); TRIGLYCERIDES 98 MG/DL (20-135); WHITE BLOOD COUNT 18.3 X10'3 (4.5-11.0); eGFR > 90 ML/MIN
[2020-07-21 06:34] LABS: TOTAL CELLS COUNTED 100
[2020-07-21 06:36] LABS: PLATELET ESTIMATE NORMAL
[2020-07-21] MEDS: enoxaparin 40mg/0.4ml syringe SUBCUT SCH (07:12)
[2020-07-21] MEDS: docusate sodium 100mg/10ml UD cup OGT SCH ×2 (07:12→20:00)
[2020-07-21] MEDS: famotidine/PF 10 mg/ml inj IV SCH (07:12)
[2020-07-21] MEDS: cyanocobalamin 500mcg tablet PO SCH (07:12)
[2020-07-21] MEDS: lactobacillus rhamnosus 10,000 MMU CELLS/CAPSULE OGT SCH ×2 (07:13→21:15)
[2020-07-21] MEDS: mineral oil/petrolatum ophthal oint EACHEYE SCH ×3 (07:18→20:00)
[2020-07-21] MEDS ORDERED: valproate sod 250mg/5ml UD oral syrup NG SCH (07:21)
[2020-07-21] MEDS: midazolam 100mg in NS 100ml 100 ML IV SCH (07:53)
[2020-07-21] MEDS: valproate sod 250mg/5ml UD oral syrup NG SCH ×3 (07:54→21:15)
[2020-07-21] MEDS: K, MAG and/or Phos replacement - Verify level? MC SCH (08:00)
[2020-07-21] MEDS: dexmedetomidine/D5W 100mL 100 ML IV SCH ×2 (09:15→19:30)
--- NOTE | 2020-07-21 11:51 | NUR ---
MD aware versed off since AM, and precedex only running for an hour. All gtts off, patient unresponsive and eyes gazed to left. No new orders received.
[2020-07-21] MEDS ORDERED: ipratropium/albuterol 3ml nebule NEB PRN (14:05)
[2020-07-21] MEDS ORDERED: racepinephrine 11.25mg/0.5ml nebule NEB PRN (14:05)
--- NOTE | 2020-07-21 14:35 | NUR ---
RT at bedside. Pt extubated to 2L Nasal Cannula.
[2020-07-21] MEDS: ipratropium/albuterol 3ml nebule NEB SCH ×2 (15:38→20:28)
[2020-07-21] MEDS: LORazepam 2 mg/ml vial IV PRN (18:12)
--- NOTE | 2020-07-21 18:13 | NUR ---
Patient report given, questions answered & plan of care reviewed with Lelia WALKER.
--- NOTE | 2020-07-21 18:15 | NUR ---
Patient in room CICU 2007. I have received report from Marco Antonio WALKER and had the opportunity to ask questions and assume patient care. Patient recently extubated, he is extremely restless. Precedex is off due to hypotension. RR is 46-50. Administered 2 mg of Ativan in order to decrease patient's RR - He is resting comfortably now, will continue to monitor closely.
[2020-07-21] MEDS: CefTRIAXone/D5W-Rocephin 1gm 50 ML IV SCH (21:15)
[2020-07-21] MEDS: sennosides/docusate sodium tablet OGT SCH (21:16)
[2020-07-22] VITALS (22 sets, daily range): BP systolic 103–134; BP diastolic 59–92
[2020-07-22] MEDS: LORazepam 2 mg/ml vial IV PRN (01:51)
[2020-07-22] MEDS: mineral oil/petrolatum ophthal oint EACHEYE SCH ×2 (02:00→08:00)
[2020-07-22] MEDS: ipratropium/albuterol 3ml nebule NEB SCH ×4 (02:41→19:50)
[2020-07-22] MEDS: valproate sod 250mg/5ml UD oral syrup NG SCH ×3 (05:40→20:53)
[2020-07-22 06:12] LABS: BASOPHILS % (AUTO) 0.1 % (0-1); EOSINOPHILS # (AUTO) 0.8 X10'3 (0-0.9); EOSINOPHILS % (AUTO) 4.1 % (0-6); HEMATOCRIT 35.9 % (42.0-52.0); HEMOGLOBIN 11.9 g/dl (14.0-17.9); LYMPHOCYTES # (AUTO) 3.3 X10'3 (1.1-4.8); LYMPHOCYTES % (AUTO) 16.9 % (21-51); MEAN CORPUSCULAR HEMOGLOBIN 32.5 PG (27.0-31.0); MEAN CORPUSCULAR VOLUME 98.5 FL (78-98); MEAN PLATELET VOLUME 9.2 FL (7.4-10.4); MONOCYTES % (AUTO) 15.2 % (2-12); NEUTROPHILS # (AUTO) 12.4 X10'3 (1.8-7.7); NEUTROPHILS % (AUTO) 63.7 % (42-75); PLATELET COUNT 530 X10'3 (140-440); RED BLOOD COUNT 3.65 X10'6 (4.70-6.10); RED CELL DISTRIBUTION WIDTH 13.5 % (11.5-14.5); WHITE BLOOD COUNT 19.5 X10'3 (4.5-11.0)
--- NOTE | 2020-07-22 06:25 | NUR ---
Patient in room CICU 2007. I have received report from Lelia WALKER and had the opportunity to ask questions and assume patient care.
[2020-07-22 06:35] LABS: ALANINE AMINOTRANSFERASE 17 U/L (12-78); ALBUMIN 2.9 G/DL (3.4-5.0); ALBUMIN/GLOBULIN RATIO 0.6 (1.1-1.5); ALKALINE PHOSPHATASE 60 IU/L (46-116); ANION GAP 9 (8-16); ASPARTATE AMINO TRANSFERASE 12 U/L (10-37); BILIRUBIN,TOTAL 0.2 MG/DL (0.1-1.0); BLOOD UREA NITROGEN 9 MG/DL (7-18); BUN/CREATININE RATIO 15.5 (5.4-32.0); CALCIUM 10.2 MG/DL (8.5-10.1); CHLORIDE 101 MMOL/L (99-107); CREATININE 0.58 MG/DL (0.60-1.10); GLUCOSE 123 MG/DL (70-104); MAGNESIUM 2.1 MG/DL (1.5-2.4); PHOSPHORUS 5.1 MG/DL (2.3-4.5); POTASSIUM 4.2 MMOL/L (3.5-5.1); SODIUM 137 MMOL/L (135-145); TOTAL CARBON DIOXIDE 27.2 MMOL/L (24-32); TOTAL PROTEIN 7.8 G/DL (6.4-8.2); TRIGLYCERIDES 96 MG/DL (20-135); eGFR > 90 ML/MIN
[2020-07-22 06:55] LABS: TOTAL CELLS COUNTED 100
[2020-07-22 06:56] LABS: PLATELET ESTIMATE NORMAL; POLYCHROMASIA 1+
[2020-07-22] MEDS: docusate sodium 100mg/10ml UD cup OGT SCH ×2 (07:03→21:00)
[2020-07-22] MEDS: famotidine/PF 10 mg/ml inj IV SCH (07:03)
[2020-07-22] MEDS: cyanocobalamin 500mcg tablet PO SCH (07:03)
[2020-07-22] MEDS: lactobacillus rhamnosus 10,000 MMU CELLS/CAPSULE OGT SCH ×2 (07:03→21:01)
[2020-07-22] MEDS: enoxaparin 40mg/0.4ml syringe SUBCUT SCH (07:04)
[2020-07-22] MEDS: K, MAG and/or Phos replacement - Verify level? MC SCH (08:00)
--- NOTE | 2020-07-22 16:24 | NUR ---
while performing bed change and repositioning patient. Patient pulled out NG tube.
--- NOTE | 2020-07-22 16:49 | NUR ---
NG tube placed, auscultated and aspirated; positive placement. Tube feed restarted at 75cc/hr
--- NOTE | 2020-07-22 18:09 | NUR ---
Patient report given, questions answered & plan of care reviewed with Mac RN.
--- NOTE | 2020-07-22 19:30 | NUR ---
RN Note -Put pulled put NG tube. Replaced
[2020-07-22] MEDS: CefTRIAXone/D5W-Rocephin 1gm 50 ML IV SCH (20:52)
[2020-07-22] MEDS: sennosides/docusate sodium tablet OGT SCH (21:00)
[2020-07-23] VITALS (24 sets, daily range): BP systolic 97–136; BP diastolic 42–88
[2020-07-23] MEDS: ipratropium/albuterol 3ml nebule NEB SCH ×4 (02:41→21:06)
[2020-07-23] MEDS: valproate sod 250mg/5ml UD oral syrup NG SCH ×3 (05:39→21:17)
--- NOTE | 2020-07-23 06:14 | NUR ---
Patient in room CICU 2007. I have received report from Mac RN and had the opportunity to ask questions and assume patient care.
[2020-07-23 06:22] LABS: BASOPHILS # (AUTO) 0.1 X10'3 (0-0.2); BASOPHILS % (AUTO) 0.3 % (0-1); EOSINOPHILS # (AUTO) 0.6 X10'3 (0-0.9); EOSINOPHILS % (AUTO) 2.4 % (0-6); HEMATOCRIT 37.7 % (42.0-52.0); HEMOGLOBIN 12.2 g/dl (14.0-17.9); LYMPHOCYTES # (AUTO) 3.3 X10'3 (1.1-4.8); LYMPHOCYTES % (AUTO) 12.6 % (21-51); MEAN CORPUSCULAR HEMOGLOBIN 32.5 PG (27.0-31.0); MEAN CORPUSCULAR HGB CONC 32.4 g/dL (33.0-36.5); MEAN CORPUSCULAR VOLUME 100.1 FL (78-98); MEAN PLATELET VOLUME 9.4 FL (7.4-10.4); MONOCYTES # (AUTO) 3.6 X10'3 (0-0.9); MONOCYTES % (AUTO) 13.7 % (2-12); NEUTROPHILS # (AUTO) 18.4 X10'3 (1.8-7.7); PLATELET COUNT 551 X10'3 (140-440); RED BLOOD COUNT 3.77 X10'6 (4.70-6.10); RED CELL DISTRIBUTION WIDTH 13.4 % (11.5-14.5)
[2020-07-23 06:41] LABS: WHITE BLOOD COUNT 25.9 X10'3 (4.5-11.0)
[2020-07-23 06:45] LABS: ALANINE AMINOTRANSFERASE 15 U/L (12-78); ALBUMIN/GLOBULIN RATIO 0.6 (1.1-1.5); ALKALINE PHOSPHATASE 75 IU/L (46-116); ANION GAP 11 (8-16); ASPARTATE AMINO TRANSFERASE 25 U/L (10-37); BILIRUBIN,TOTAL 0.2 MG/DL (0.1-1.0); BLOOD UREA NITROGEN 13 MG/DL (7-18); BUN/CREATININE RATIO 21.3 (5.4-32.0); CALCIUM 10.1 MG/DL (8.5-10.1); CHLORIDE 99 MMOL/L (99-107); CREATININE 0.61 MG/DL (0.60-1.10); GLUCOSE 113 MG/DL (70-104); MAGNESIUM 2.2 MG/DL (1.5-2.4); PHOSPHORUS 4.8 MG/DL (2.3-4.5); SODIUM 134 MMOL/L (135-145); TOTAL CARBON DIOXIDE 24.4 MMOL/L (24-32); TOTAL PROTEIN 8.2 G/DL (6.4-8.2); eGFR > 90 ML/MIN
[2020-07-23 06:49] LABS: POTASSIUM 4.7 MMOL/L (3.5-5.1)
[2020-07-23 07:27] LABS: PLATELET ESTIMATE INCREASED; POLYCHROMASIA 1+; TOTAL CELLS COUNTED 100
[2020-07-23] MEDS: K, MAG and/or Phos replacement - Verify level? MC SCH (08:00)
[2020-07-23] MEDS: lactobacillus rhamnosus 10,000 MMU CELLS/CAPSULE OGT SCH ×2 (08:19→21:17)
[2020-07-23] MEDS: famotidine/PF 10 mg/ml inj IV SCH (08:19)
[2020-07-23] MEDS: docusate sodium 100mg/10ml UD cup OGT SCH ×2 (08:19→20:00)
[2020-07-23] MEDS: cyanocobalamin 500mcg tablet PO SCH (08:19)
[2020-07-23] MEDS: enoxaparin 40mg/0.4ml syringe SUBCUT SCH (08:20)
[2020-07-23] MEDS ORDERED: LORazepam 2 mg/ml vial IV PRN (09:20)
[2020-07-23 09:41] LABS: VALPROATE 68 UG/ML (50-100)
--- NOTE | 2020-07-23 09:42 | NUR ---
Reassessment: Pt extubated 07/21, A/O x 1 and nonverbal per physical assessment. Pt s/p BSS 07/[address] recs NPO d/t pt being a high risk for aspiration. Pt continues on NGTF and tolerating with GRV WNL. Sepsis score 2 per physical assessment, current TF recs remain appropriate. LBM 07/20, receiving routine bowel care though noted that Senna-S documented to be held 07/22 d/t not being needed. Will continue to follow closely and make recommendations as appropriate. Recommend: 1. Continuous NGTF using Vital AF at 75ml/hr goal; to provide 1800 mL total volume/day, 1458 mL water, 2160 kcal, and 135 g protein 2. additional 200 mL water flush Q4H; monitor serum Na and need for adjustments 3. PALB Q /; daily wts 4. Diet advancement to regular as medically indicated pending f/u BSS; continue TF for nutrition until PO diet advanced and pt able to tolerate average 65% PO intake of meals Addendum: 07/23/20 at [address] Amended: Links added.
--- NOTE | 2020-07-23 11:37 | NUR ---
notified that patient's WBC count is 25.9; new orders received.
[2020-07-23] MEDS: polyethylene glycol 3350 17gm powd pack PO SCH (12:41)
--- NOTE | 2020-07-23 17:58 | NUR ---
MD wanted to discuss removing the peck with patient's mother. Discussed this with mother at bedside and patient is used to going to the bathroom at home and would be able to let us know when he needs to urinate. pt at present is unable to vocalize needs. will continue to monitor.
--- NOTE | 2020-07-23 18:15 | NUR ---
Patient in room CICU 2008. I have received report from Neida WALKER and had the opportunity to ask questions and assume patient care.
[2020-07-23] MEDS: sennosides/docusate sodium tablet OGT SCH (20:27)
[2020-07-23] MEDS: CefTRIAXone/D5W-Rocephin 1gm 50 ML IV SCH (21:17)
--- NOTE | 2020-07-23 23:33 | NUR ---
Problems reprioritized. Patient report given, questions answered & plan of care reviewed with Neida WALKER.
--- NOTE | 2020-07-23 23:36 | NUR ---
Patient in room CICU 2007. I have received report from Ladan WALKER and had the opportunity to ask questions and assume patient care.
[2020-07-24] VITALS (17 sets, daily range): BP systolic 95–126; BP diastolic 46–78
[2020-07-24] MEDS: ipratropium/albuterol 3ml nebule NEB SCH ×2 (01:57→09:00)
[2020-07-24] MEDS: valproate sod 250mg/5ml UD oral syrup NG SCH ×4 (05:38→22:30)
[2020-07-24 06:20] LABS: BASOPHILS # (AUTO) 0.1 X10'3 (0-0.2); HEMOGLOBIN 11.7 g/dl (14.0-17.9); LYMPHOCYTES # (AUTO) 3.2 X10'3 (1.1-4.8); MEAN PLATELET VOLUME 8.9 FL (7.4-10.4); RED CELL DISTRIBUTION WIDTH 13.4 % (11.5-14.5); WHITE BLOOD COUNT 18.7 X10'3 (4.5-11.0)
--- NOTE | 2020-07-24 06:23 | NUR ---
Problems reprioritized. Patient report given, questions answered & plan of care reviewed with Lanie WALKER.
[2020-07-24 06:25] LABS: BASOPHILS % (AUTO) 0.5 % (0-1); EOSINOPHILS # (AUTO) 0.6 X10'3 (0-0.9); HEMATOCRIT 35.5 % (42.0-52.0); LYMPHOCYTES % (AUTO) 17.2 % (21-51); MEAN CORPUSCULAR HEMOGLOBIN 32.7 PG (27.0-31.0); MEAN CORPUSCULAR HGB CONC 33.1 g/dL (33.0-36.5); MONOCYTES # (AUTO) 2.3 X10'3 (0-0.9); MONOCYTES % (AUTO) 12.1 % (2-12); NEUTROPHILS # (AUTO) 12.6 X10'3 (1.8-7.7); NEUTROPHILS % (AUTO) 67.2 % (42-75); PLATELET COUNT 590 X10'3 (140-440); RED BLOOD COUNT 3.59 X10'6 (4.70-6.10)
--- NOTE | 2020-07-24 06:25 | NUR ---
[facility] I have received report from Neida WALKER and had the opportunity to ask questions and assume patient care. Addendum: 07/24/20 at 0626 by Lanie Smith RN Amended: Links added.
[2020-07-24 06:54] LABS: ALANINE AMINOTRANSFERASE 16 U/L (12-78); ALBUMIN/GLOBULIN RATIO 0.6 (1.1-1.5); ALKALINE PHOSPHATASE 71 IU/L (46-116); ANION GAP 10 (8-16); ASPARTATE AMINO TRANSFERASE 23 U/L (10-37); BILIRUBIN,TOTAL 0.2 MG/DL (0.1-1.0); BLOOD UREA NITROGEN 16 MG/DL (7-18); CHLORIDE 100 MMOL/L (99-107); CREATININE 0.64 MG/DL (0.60-1.10); GLUCOSE 103 MG/DL (70-104); PHOSPHORUS 5.2 MG/DL (2.3-4.5); POTASSIUM 4.2 MMOL/L (3.5-5.1); SODIUM 138 MMOL/L (135-145); TOTAL CARBON DIOXIDE 28.2 MMOL/L (24-32); TOTAL PROTEIN 8.3 G/DL (6.4-8.2); eGFR > 90 ML/MIN
[2020-07-24 07:41] LABS: TOTAL CELLS COUNTED 100
[2020-07-24 07:43] LABS: PLATELET ESTIMATE INCREASED; POLYCHROMASIA FEW; TEAR DROP CELLS FEW
[2020-07-24 07:44] LABS: BURR CELLS FEW; STOMATOCYTES FEW
[2020-07-24] MEDS: cyanocobalamin 500mcg tablet PO SCH (07:51)
[2020-07-24] MEDS: docusate sodium 100mg/10ml UD cup OGT SCH ×2 (07:51→20:00)
[2020-07-24] MEDS: lactobacillus rhamnosus 10,000 MMU CELLS/CAPSULE OGT SCH ×3 (07:51→22:01)
[2020-07-24] MEDS: famotidine/PF 10 mg/ml inj IV SCH (07:51)
[2020-07-24] MEDS: enoxaparin 40mg/0.4ml syringe SUBCUT SCH (07:52)
[2020-07-24] MEDS: K, MAG and/or Phos replacement - Verify level? MC SCH (07:52)
--- NOTE | 2020-07-24 09:45 | NUR ---
Dr. Rodriguez in to see pt. Orders received to transfer pt. to PCU with telemetry.
--- NOTE | 2020-07-24 11:28 | NUR ---
PT worked with pt. See PT notes.
[2020-07-24] MEDS: polyethylene glycol 3350 17gm powd pack PO SCH (12:35)
--- NOTE | 2020-07-24 14:41 | NUR ---
Pt. transferred to 302 via bed in stable condition after giving report to Ruthy WALKER.
--- NOTE | 2020-07-24 16:35 | NUR ---
RESTRAINTS DC AT THIS TIME HAS DR GUTIERREZ ORDERED, NG TUBE DC HAS WELL. PATIENT IS TO START REGULAR FOODS TODAY IN THE EVENING, MOTHER BY BEDSIDE AND AWARE, NO OTHER NEEDS AT THIS TIME.
[2020-07-24] MEDS: sennosides/docusate sodium tablet OGT SCH (21:00)
[2020-07-24] MEDS: CefTRIAXone/D5W-Rocephin 1gm 50 ML IV SCH (22:02)
--- NOTE | 2020-07-24 22:53 | NUR ---
pt refused all oral meds this evening. Dr. Beth notified.
[2020-07-24] MEDS ORDERED: normal saline 500ml IV soln 500 ML IV ONE (23:00)
[2020-07-24] MEDS ORDERED: LORazepam 2 mg/ml vial IV ONE (23:00)
--- NOTE | 2020-07-24 23:34 | NUR ---
Patient in room PCU 3026. I have received report from Ruthy WALKER and had the opportunity to ask questions and assume patient care with Elizabeth WALKER.
[2020-07-25] VITALS: BP 110/58
[2020-07-25 02:00] VITALS: BP 108/58
--- NOTE | 2020-07-25 03:40 | NUR ---
ORIENTEE documentation: I have reviewed and agree with all interventions, assessments performed and documented by Tasha WALKER. oRIENTMIKE Medication Administration: For this medication-pass time frame, all medication were reviewed, dispensed, administered and documented per hospital policy by Tasha WALKER.
--- NOTE | 2020-07-25 04:14 | NUR ---
Patient in room U 3026. I have received report from MAGGIE WALKER and had the opportunity to ask questions and assume patient care WITH JACQUELIN WALKER Addendum: 07/25/20 at 0416 by Virgen Cervantes RN INCORRECT TIME. TIME WAS SHIFT CHANGE, 1800, 07/24/20
[2020-07-25 06:00] VITALS: BP 105/59
--- NOTE | 2020-07-25 06:17 | NUR ---
Problems reprioritized. Patient report given, questions answered & plan of care reviewed with Dago WALKER.
[2020-07-25 06:22] LABS: BASOPHILS # (AUTO) 0.1 X10'3 (0-0.2); BASOPHILS % (AUTO) 0.4 % (0-1); EOSINOPHILS # (AUTO) 0.4 X10'3 (0-0.9); EOSINOPHILS % (AUTO) 2.8 % (0-6); HEMATOCRIT 33.8 % (42.0-52.0); HEMOGLOBIN 11.3 g/dl (14.0-17.9); LYMPHOCYTES # (AUTO) 3.3 X10'3 (1.1-4.8); LYMPHOCYTES % (AUTO) 24.9 % (21-51); MEAN CORPUSCULAR HEMOGLOBIN 33.2 PG (27.0-31.0); MEAN CORPUSCULAR HGB CONC 33.4 g/dL (33.0-36.5); MEAN CORPUSCULAR VOLUME 99.5 FL (78-98); MEAN PLATELET VOLUME 8.7 FL (7.4-10.4); MONOCYTES # (AUTO) 1.4 X10'3 (0-0.9); MONOCYTES % (AUTO) 10.7 % (2-12); NEUTROPHILS # (AUTO) 8.2 X10'3 (1.8-7.7); NEUTROPHILS % (AUTO) 61.2 % (42-75); PLATELET COUNT 534 X10'3 (140-440); RED CELL DISTRIBUTION WIDTH 13.2 % (11.5-14.5); WHITE BLOOD COUNT 13.4 X10'3 (4.5-11.0)
--- NOTE | 2020-07-25 06:34 | NUR ---
Patient in room PCU 3026. I have received report from Ja WALKER and had the opportunity to ask questions and assume patient care.
[2020-07-25 06:44] LABS: ALANINE AMINOTRANSFERASE 16 U/L (12-78); ALBUMIN 2.7 G/DL (3.4-5.0); ALBUMIN/GLOBULIN RATIO 0.6 (1.1-1.5); ALKALINE PHOSPHATASE 56 IU/L (46-116); ANION GAP 9 (8-16); ASPARTATE AMINO TRANSFERASE 17 U/L (10-37); BILIRUBIN,TOTAL 0.2 MG/DL (0.1-1.0); BLOOD UREA NITROGEN 17 MG/DL (7-18); BUN/CREATININE RATIO 27.4 (5.4-32.0); CALCIUM 9.5 MG/DL (8.5-10.1); CHLORIDE 104 MMOL/L (99-107); CREATININE 0.62 MG/DL (0.60-1.10); GLUCOSE 93 MG/DL (70-104); MAGNESIUM 2.2 MG/DL (1.5-2.4); PHOSPHORUS 5.2 MG/DL (2.3-4.5); POTASSIUM 3.9 MMOL/L (3.5-5.1); SODIUM 139 MMOL/L (135-145); TOTAL CARBON DIOXIDE 26.1 MMOL/L (24-32); TOTAL PROTEIN 7.5 G/DL (6.4-8.2); eGFR > 90 ML/MIN
[2020-07-25 07:57] LABS: PLATELET ESTIMATE INCREASED; TOTAL CELLS COUNTED 100
[2020-07-25 07:58] LABS: ANISOCYTOSIS 1+
[2020-07-25] MEDS: cyanocobalamin 500mcg tablet PO SCH (08:00)
[2020-07-25] MEDS: K, MAG and/or Phos replacement - Verify level? MC SCH (08:00)
[2020-07-25] MEDS: docusate sodium 100mg/10ml UD cup OGT SCH (08:00)
[2020-07-25] MEDS: enoxaparin 40mg/0.4ml syringe SUBCUT SCH (08:00)
--- NOTE | 2020-07-25 08:40 | NUR ---
Tried giving patient morning meds. Patient refused. Wasted colace in waste container. Pharmacy notified.
[2020-07-25] MEDS: docusate sodium 100mg/10ml UD cup OGT ONE ×2 (08:55→15:43)
[2020-07-25] MEDS ORDERED: acetaminophen 325mg/10.15ml oral unit dose solution PO PRN ×2 (09:38)
[2020-07-25] MEDS ORDERED: polyethylene glycol 3350 17gm powd pack PO PRN (09:39)
[2020-07-25] MEDS ORDERED: magnesium hydroxide 30ml (MOM) UD suspension PO PRN (09:39)
[2020-07-25] MEDS ORDERED: POTASSIUM BICARB 20meq eff tab 20 MEQ TABLET.EFF PO PRN ×2 (09:39)
[2020-07-25 11:00] VITALS: BP 115/55
[2020-07-25] MEDS: polyethylene glycol 3350 17gm powd pack PO SCH ×2 (12:35→15:45)
[2020-07-25] MEDS: famotidine/PF 10 mg/ml inj IV SCH (15:43)
[2020-07-25] MEDS: valproate sod 250mg/5ml UD oral syrup PO SCH ×2 (15:44→21:00)
[2020-07-25 18:00] VITALS: BP 110/57
--- NOTE | 2020-07-25 18:22 | NUR ---
Problems reprioritized. Patient report given, questions answered & plan of care reviewed with Ja WALKER. Patient stable at tranfer of care.
--- NOTE | 2020-07-25 18:30 | NUR ---
Patient in room PCU 3026. I have received report from Laila WALKER and had the opportunity to ask questions and assume patient care with Elizabeth WALKER
--- NOTE | 2020-07-25 18:45 | NUR ---
Patient in room PCU 3026. I have received report from DENISE King and had the opportunity to ask questions and assume patient care.
--- NOTE | 2020-07-25 19:20 | NUR ---
Called and left message for Dr. Mancia for return call regarding request for IV Depakene due to patient's failed swallow study. Dr. Mancia returned call immediately and reported she does not cover patients outside of ICU.
[2020-07-25] MEDS: docusate sodium 100mg/10ml UD cup PO SCH (20:00)
[2020-07-25] MEDS: lactobacillus rhamnosus 10,000 MMU CELLS/CAPSULE PO SCH (20:00)
--- NOTE | 2020-07-25 20:30 | NUR ---
Patient resisted physical assessment, told me "Don't touch it" and became upset when I got close to him. Patient said, "up higher" regarding tray table, wanted to pull it all the way up to his chest.Patient took wipes from tray table and put them by his right side. When asked if he needed to be cleaned up, he shook his head. Patient appears uncomfortable with female staff, especially in regard to modesty.
[2020-07-25] MEDS: sennosides/docusate sodium tablet PO SCH (20:38)
--- NOTE | 2020-07-25 21:14 | NUR ---
ORDERS FROM dR. Maki TO cHANGE SEIZURE MED FROM ORAL TO IV. PT IS PART OF HOSPITALIST SERVICE PER dR. Maki.
[2020-07-25] MEDS ORDERED: Levetiracetam-NS 500mg/100ml 100 ML IV SCH (21:25)
--- NOTE | 2020-07-25 21:32 | NUR ---
SPOKE WITH dR. Ferrari FOR ORDER CLARIFICATION. ORDERS TO GIVE BOTH DEPACON IV AND KEPPRA IV. DR. FERRARI WILL DC AN ADDITIONAL DEPACON ORDER THAT IS NOW NOT NEEDED.
[2020-07-25] MEDS: CefTRIAXone/D5W-Rocephin 1gm 50 ML IV SCH (21:48)
[2020-07-25 22:00] VITALS: BP 109/73
--- NOTE | 2020-07-25 22:14 | NUR ---
SPOKE WITH Jenny, THE PATIENTS MOTHER JUST TO LET HER KNOW ABOUT IV KEPPRA BEING ORDERED IN ADDITION. SHE STATED KEPPRA WAS NOT A GOOD MED FOR HIM IN THE PAST AND "IT SENDS HIM IN THE WRONG DIRECTION" AND HE GETS VIOLENT AND AGITATED. IV KEPPRA WILL NOT BE GIVEN THIS EVENING. WILL INFORM DR. TRAN WHO ORDERED THE KEPPRA.
--- NOTE | 2020-07-25 22:17 | NUR ---
PAGER ID: [phone] MESSAGE: [id number] Julio Mcconnell. sPOKE WITH HIS MOM, SHE STATED KEPPRA IS NOT A GOOD MED FOR HIM AND REFUSED IT FOR TONIGHT. SAID IT SENDS HIM THE WRONG DIRECTION. NOTE IN CHART. KENA [phone]
[2020-07-25] MEDS: VALPROATE SOD IV SCH (22:43)
[2020-07-25] MEDS: NORMAL SALINE IV SCH (22:43)
[2020-07-26] MEDS ORDERED: valproate sod inj 500 MG in normal saline 50ml IV soln 50 ML IV SCH ×2
[2020-07-26 02:00] VITALS: BP 106/60
[2020-07-26] MEDS: NORMAL SALINE IV SCH ×4 (05:00→20:27)
[2020-07-26] MEDS: VALPROATE SOD IV SCH ×4 (05:00→20:27)
--- NOTE | 2020-07-26 05:10 | NUR ---
pt pulled out iv. attempted one time to start new one. pt told us no and pulled away. He also told us not to touch his stuffed monkey. notified
[2020-07-26] MEDS ORDERED: LORazepam 2 mg/ml vial IM ONE (05:35)
--- NOTE | 2020-07-26 05:44 | NUR ---
pt initially refused lab draw. RN assisted laboratory associate in getting specimen. pt agreed to one poke. he did pull away a little bit when poked but then relaxed and was compliant. did not want old iv dressing removed from arm. told pt he can remove that dressing on his own anytime.
--- NOTE | 2020-07-26 06:13 | NUR ---
Orientee documentation: I have reviewed and agree with all interventions, assessments performed and documented by Elizabeth WALKER. Orientmaxi Medication Administration: For this medication-pass time frame, all medication were reviewed, dispensed, administered and documented per hospital policy by Elizabeth WALKER .
--- NOTE | 2020-07-26 06:32 | NUR ---
Problems reprioritized. Patient report given, questions answered & plan of care reviewed with Laila and Kyung RNs.
--- NOTE | 2020-07-26 06:32 | NUR ---
Problems reprioritized. Patient report given, questions answered & plan of care reviewed with DENISE Ulloa.
[2020-07-26 06:33] LABS: BASOPHILS # (AUTO) 0.1 X10'3 (0-0.2); BASOPHILS % (AUTO) 0.6 % (0-1); EOSINOPHILS # (AUTO) 0.3 X10'3 (0-0.9); EOSINOPHILS % (AUTO) 2.1 % (0-6); HEMOGLOBIN 11.6 g/dl (14.0-17.9); LYMPHOCYTES # (AUTO) 3.6 X10'3 (1.1-4.8); LYMPHOCYTES % (AUTO) 28.2 % (21-51); MEAN CORPUSCULAR HEMOGLOBIN 32.8 PG (27.0-31.0); MEAN CORPUSCULAR HGB CONC 33.1 g/dL (33.0-36.5); MEAN PLATELET VOLUME 9.1 FL (7.4-10.4); MONOCYTES # (AUTO) 1.4 X10'3 (0-0.9); MONOCYTES % (AUTO) 10.9 % (2-12); NEUTROPHILS # (AUTO) 7.3 X10'3 (1.8-7.7); NEUTROPHILS % (AUTO) 58.2 % (42-75); PLATELET COUNT 565 X10'3 (140-440); RED BLOOD COUNT 3.53 X10'6 (4.70-6.10); RED CELL DISTRIBUTION WIDTH 13.3 % (11.5-14.5); WHITE BLOOD COUNT 12.6 X10'3 (4.5-11.0)
--- NOTE | 2020-07-26 06:46 | NUR ---
Rcvd report from EDNISE Peres and assumed care
--- NOTE | 2020-07-26 06:47 | NUR ---
Patient in room PCU 3026. I have received report from Ja WALKER and had the opportunity to ask questions and assume patient care.
[2020-07-26 06:52] LABS: ALANINE AMINOTRANSFERASE 18 U/L (12-78); ALBUMIN/GLOBULIN RATIO 0.6 (1.1-1.5); ALKALINE PHOSPHATASE 62 IU/L (46-116); ANION GAP 11 (8-16); ASPARTATE AMINO TRANSFERASE 23 U/L (10-37); BLOOD UREA NITROGEN 22 MG/DL (7-18); BUN/CREATININE RATIO 34.4 (5.4-32.0); CHLORIDE 104 MMOL/L (99-107); CREATININE 0.64 MG/DL (0.60-1.10); GLUCOSE 78 MG/DL (70-104); MAGNESIUM 2.1 MG/DL (1.5-2.4); PHOSPHORUS 4.7 MG/DL (2.3-4.5); POTASSIUM 4.1 MMOL/L (3.5-5.1); SODIUM 141 MMOL/L (135-145); TOTAL CARBON DIOXIDE 25.8 MMOL/L (24-32); eGFR > 90 ML/MIN
[2020-07-26 06:53] LABS: BILIRUBIN,TOTAL 0.2 MG/DL (0.1-1.0)
[2020-07-26] MEDS: K, MAG and/or Phos replacement - Verify level? MC SCH (08:00)
[2020-07-26] MEDS: lactobacillus rhamnosus 10,000 MMU CELLS/CAPSULE PO SCH ×2 (08:00→20:00)
[2020-07-26] MEDS: enoxaparin 40mg/0.4ml syringe SUBCUT SCH (08:00)
[2020-07-26] MEDS: cyanocobalamin 500mcg tablet PO SCH (08:00)
[2020-07-26] MEDS: docusate sodium 100mg/10ml UD cup PO SCH ×2 (08:00→20:00)
[2020-07-26 11:00] VITALS: BP 102/48
[2020-07-26] MEDS: famotidine/PF 10 mg/ml inj IV SCH (11:37)
--- NOTE | 2020-07-26 11:56 | NUR ---
Patient refused lovenox
--- NOTE | 2020-07-26 12:39 | NUR ---
Reassessment: Pt s/p BSS with ST recs NPO on 07/22, 07/25, and 07/26. Per RN notes NG tube was discontinued 07/24 and pt pulled out IV early this morning. Pt resistive to care per physical assessment. Recommend PEG for parts counterman nutrition if unable to advance PO diet, see below for recommendations. LBM 07/25 with routine bowel care available however meds not given at this time d/t NPO status. Will continue to follow closely and make recommendations as appropriate. Recommend: 1. Diet advancement to regular as medically indicated pending f/u BSS 2. TF if unable to advance PO diet; continuous Jevity 1.2 with goal rate of 75 mL/hr 3. IF TF, additional 120 mL water flush Q4H; monitor serum Na 4. IF TF, prealbumin q Saturday/, daily weights 5. Routine bowel care Addendum: 07/26/20 at [address] Amended: Links added.
[2020-07-26] MEDS: dextrose 5%-normal saline 1,000 ML IV SCH (14:37)
[2020-07-26 15:00] VITALS: BP 103/53
[2020-07-26 18:00] VITALS: BP 108/56
--- NOTE | 2020-07-26 18:30 | NUR ---
Problems reprioritized. Patient report given, questions answered & plan of care reviewed with Montrell WALKER. Patient stable at transfer of care.
--- NOTE | 2020-07-26 19:11 | NUR ---
Patient in room PCU 3026. I have received report from DENISE King and had the opportunity to ask questions and assume patient care.
--- NOTE | 2020-07-26 20:54 | NUR ---
Called pharmacy to confirm compatibility with Valproate in NS with Dex 5 in NS. Pharmacy reported compatible.
[2020-07-26] MEDS: sennosides/docusate sodium tablet PO SCH (21:00)
[2020-07-26] MEDS: CefTRIAXone/D5W-Rocephin 1gm 50 ML IV SCH (21:54)
[2020-07-26 22:00] VITALS: BP 98/55
[2020-07-27 02:00] VITALS: BP 112/62
[2020-07-27] MEDS: dextrose 5%-normal saline 1,000 ML IV SCH ×2 (02:00→15:45)
--- NOTE | 2020-07-27 02:53 | NUR ---
Patient awake most of night, in no distress. Communication with him is difficult, although he answers yes/no type questions.
[2020-07-27] MEDS: VALPROATE SOD IV SCH ×3 (05:25→21:00)
[2020-07-27] MEDS: NORMAL SALINE IV SCH ×3 (05:25→21:00)
--- NOTE | 2020-07-27 05:46 | NUR ---
Due to patient being noncompliant and unable to communicate, required extra assistance during lab draw to keep patient calm.
[2020-07-27 05:57] LABS: BASOPHILS # (AUTO) 0.1 X10'3 (0-0.2); BASOPHILS % (AUTO) 0.7 % (0-1); EOSINOPHILS # (AUTO) 0.2 X10'3 (0-0.9); EOSINOPHILS % (AUTO) 2.4 % (0-6); HEMATOCRIT 35.4 % (42.0-52.0); HEMOGLOBIN 11.6 g/dl (14.0-17.9); LYMPHOCYTES # (AUTO) 3.6 X10'3 (1.1-4.8); LYMPHOCYTES % (AUTO) 40.5 % (21-51); MEAN CORPUSCULAR HEMOGLOBIN 32.7 PG (27.0-31.0); MEAN CORPUSCULAR HGB CONC 32.7 g/dL (33.0-36.5); MEAN CORPUSCULAR VOLUME 99.8 FL (78-98); MEAN PLATELET VOLUME 8.5 FL (7.4-10.4); MONOCYTES # (AUTO) 1.1 X10'3 (0-0.9); MONOCYTES % (AUTO) 11.8 % (2-12); NEUTROPHILS % (AUTO) 44.6 % (42-75); PLATELET COUNT 550 X10'3 (140-440); RED BLOOD COUNT 3.55 X10'6 (4.70-6.10); RED CELL DISTRIBUTION WIDTH 13.6 % (11.5-14.5)
[2020-07-27 06:00] VITALS: BP 110/55
[2020-07-27 06:18] LABS: ALANINE AMINOTRANSFERASE 21 U/L (12-78); ALBUMIN 2.9 G/DL (3.4-5.0); ALBUMIN/GLOBULIN RATIO 0.6 (1.1-1.5); ALKALINE PHOSPHATASE 61 IU/L (46-116); ANION GAP 11 (8-16); ASPARTATE AMINO TRANSFERASE 23 U/L (10-37); BILIRUBIN,TOTAL 0.2 MG/DL (0.1-1.0); BLOOD UREA NITROGEN 17 MG/DL (7-18); BUN/CREATININE RATIO 24.6 (5.4-32.0); CALCIUM 9.7 MG/DL (8.5-10.1); CHLORIDE 106 MMOL/L (99-107); CREATININE 0.69 MG/DL (0.60-1.10); GLUCOSE 86 MG/DL (70-104); MAGNESIUM 2.1 MG/DL (1.5-2.4); PHOSPHORUS 4.3 MG/DL (2.3-4.5); SODIUM 141 MMOL/L (135-145); TOTAL PROTEIN 7.8 G/DL (6.4-8.2); eGFR > 90 ML/MIN
--- NOTE | 2020-07-27 06:28 | NUR ---
Problems reprioritized. Patient report given, questions answered & plan of care reviewed with DENISE Galloway.
[2020-07-27] MEDS: lactobacillus rhamnosus 10,000 MMU CELLS/CAPSULE PO SCH ×2 (08:00→23:36)
[2020-07-27] MEDS: docusate sodium 100mg/10ml UD cup PO SCH ×2 (08:00→23:36)
[2020-07-27] MEDS: K, MAG and/or Phos replacement - Verify level? MC SCH (08:00)
[2020-07-27] MEDS: cyanocobalamin 500mcg tablet PO SCH (08:00)
[2020-07-27] MEDS: enoxaparin 40mg/0.4ml syringe SUBCUT SCH (08:41)
[2020-07-27] MEDS: famotidine/PF 10 mg/ml inj IV SCH (08:41)
[2020-07-27 11:00] VITALS: BP 104/54
[2020-07-27 18:00] VITALS: BP 108/40
[2020-07-27] MEDS ORDERED: LORazepam 2 mg/ml vial IV PRN (18:55)
--- NOTE | 2020-07-27 22:27 | NUR ---
PTT 115, Heparin held per protocol. Dr Beth made aware.
[2020-07-27] MEDS: sennosides/docusate sodium tablet PO SCH (23:37)
[2020-07-28 02:00] VITALS: BP 94/52
[2020-07-28] MEDS: dextrose 5%-normal saline 1,000 ML IV SCH ×2 (05:48→13:58)
[2020-07-28] MEDS ORDERED: VALPROATE SOD IV SCH (05:55)
[2020-07-28] MEDS ORDERED: NORMAL SALINE IV SCH (05:55)
[2020-07-28 06:00] VITALS: BP 102/51
[2020-07-28] MEDS: K, MAG and/or Phos replacement - Verify level? MC SCH (08:00)
[2020-07-28] MEDS: famotidine/PF 10 mg/ml inj IV SCH (09:30)
[2020-07-28 09:32] LABS: BASOPHILS # (AUTO) 0.1 X10'3 (0-0.2); BASOPHILS % (AUTO) 0.9 % (0-1); EOSINOPHILS # (AUTO) 0.2 X10'3 (0-0.9); HEMATOCRIT 33.6 % (42.0-52.0); HEMOGLOBIN 11.2 g/dl (14.0-17.9); LYMPHOCYTES # (AUTO) 3.3 X10'3 (1.1-4.8); LYMPHOCYTES % (AUTO) 45.1 % (21-51); MEAN CORPUSCULAR HEMOGLOBIN 32.7 PG (27.0-31.0); MEAN CORPUSCULAR HGB CONC 33.4 g/dL (33.0-36.5); MEAN CORPUSCULAR VOLUME 98.1 FL (78-98); MEAN PLATELET VOLUME 9.3 FL (7.4-10.4); MONOCYTES # (AUTO) 0.7 X10'3 (0-0.9); MONOCYTES % (AUTO) 9.6 % (2-12); NEUTROPHILS % (AUTO) 41.4 % (42-75); PLATELET COUNT 447 X10'3 (140-440); RED BLOOD COUNT 3.43 X10'6 (4.70-6.10); RED CELL DISTRIBUTION WIDTH 13.2 % (11.5-14.5); WHITE BLOOD COUNT 7.2 X10'3 (4.5-11.0)
[2020-07-28] MEDS: valproate sod 250mg/5ml UD oral syrup PO SCH ×3 (09:39→20:54)
[2020-07-28] MEDS: enoxaparin 40mg/0.4ml syringe SUBCUT SCH (09:40)
[2020-07-28] MEDS: docusate sodium 100mg/10ml UD cup PO SCH ×2 (09:40→20:54)
[2020-07-28] MEDS: cyanocobalamin 500mcg tablet PO SCH (09:40)
[2020-07-28] MEDS: lactobacillus rhamnosus 10,000 MMU CELLS/CAPSULE PO SCH ×2 (09:40→20:54)
[2020-07-28 09:41] LABS: ALANINE AMINOTRANSFERASE 17 U/L (12-78); ALBUMIN 2.5 G/DL (3.4-5.0); ALBUMIN/GLOBULIN RATIO 0.6 (1.1-1.5); ALKALINE PHOSPHATASE 55 IU/L (46-116); ANION GAP 10 (8-16); ASPARTATE AMINO TRANSFERASE 21 U/L (10-37); BILIRUBIN,TOTAL 0.2 MG/DL (0.1-1.0); BLOOD UREA NITROGEN 12 MG/DL (7-18); CHLORIDE 106 MMOL/L (99-107); GLUCOSE 97 MG/DL (70-104); PHOSPHORUS 3.9 MG/DL (2.3-4.5); SODIUM 141 MMOL/L (135-145); TOTAL CARBON DIOXIDE 25.5 MMOL/L (24-32); eGFR > 90 ML/MIN
[2020-07-28 11:00] VITALS: BP 94/51
[2020-07-28 15:00] VITALS: BP 107/60
[2020-07-28 18:00] VITALS: BP 100/57
--- NOTE | 2020-07-28 18:36 | NUR ---
Patient in room PCU 3026. I have received report from Laverne WALKER and had the opportunity to ask questions and assume patient care.
[2020-07-28] MEDS: sennosides/docusate sodium tablet PO SCH (20:54)
[2020-07-28 22:00] VITALS: BP 102/49
[2020-07-29 02:00] VITALS: BP 105/55
--- NOTE | 2020-07-29 06:10 | NUR ---
Problems reprioritized. Patient report given, questions answered & plan of care reviewed with Laverne WALKER.
--- NOTE | 2020-07-29 06:39 | NUR ---
Patient in room U 3026. I have received report from Chito WALKER Traveler and had the opportunity to ask questions and assume patient care.
[2020-07-29 07:00] VITALS: BP 103/53
[2020-07-29] MEDS ORDERED: famotidine 20mg tablet PO SCH (08:00)
[2020-07-29] MEDS: cyanocobalamin 500mcg tablet PO SCH (09:10)
[2020-07-29] MEDS: enoxaparin 40mg/0.4ml syringe SUBCUT SCH (09:11)
[2020-07-29] MEDS: docusate sodium 100mg/10ml UD cup PO SCH (09:12)
[2020-07-29] MEDS: lactobacillus rhamnosus 10,000 MMU CELLS/CAPSULE PO SCH (09:12)
[2020-07-29] MEDS: valproate sod 250mg/5ml UD oral syrup PO SCH ×2 (09:17→13:41)
--- NOTE | 2020-07-29 10:00 | NUR ---
Called Mother Maryana, in regards to patient. Patient having trouble taking medications. Was able to give liquid but will hold off until mom comes to see patient. Will continue to monitor.
--- NOTE | 2020-07-29 10:23 | NUR ---
Dr. Yoo at bedside with patient and nurses. MD is ok to discharge to mother today or tomorrow. Will ask BSS today. Mother was called and notified. Will continue to monitor.
[2020-07-29 11:00] VITALS: BP 110/57
--- NOTE | 2020-07-29 14:00 | NUR ---
Patient report received from Kena WALKER, all questions answered
--- NOTE | 2020-07-29 14:50 | NUR ---
Spoke with Chanell regarding discharge and Insurance regarding Home Health was also discussed. Dr. Yoo is ok to discharge home with MOM is ok and has enough help. Will continue to monitor.
--- NOTE | 2020-07-29 16:12 | NUR ---
Paged Dr. Yoo to advise that Mom, Maryana, is at bedside and that she has agreed to take home her son, Patient. Maryana is aware that the patient needs PT and help. Maryana was also advised that Home Health was still pending and that the insurance was not approved. Maryana was given information about [facility]. paged to complete discharge. Awaiting for discharge orders. Patient is excited and wanting to go home. Will continue to monitor. Addendum: 07/29/20 at 1640 by Kena Paris RN Dr. Yoo responded and is OK to discharge he will put orderers in.
[2020-07-29] MEDS ORDERED: VALP250S3 PO ×2 (16:40→16:41)
[2020-07-29] MEDS ORDERED: DIAZ1KIT PR (17:38)
--- NOTE | 2020-07-29 17:58 | NUR ---
Patient is stable for discharge per MD orders. All discharge instructions reviewed with patient's mother MPOA and all questions answered. New prescriptions sent to pharmacy. PIV and telemonitoring discontinued. Belongings collected and sent with patients. Patient wheeled to private vehicle
== END 2020-07-29 17:47 | disposition home or self-care (01) | DRG 207 ==
LOC: ER 19:53 → CICU 2S 22:59 → PCU 3S 07-24 14:30
PROVIDERS: ADMIT Internal Medicine; ATTEND Internal Medicine
PROC: 5A1955Z Respiratory Ventilation, Greater than 96 Consecutive Hours (ICD-10-PCS; principal; 2020-07-14)
PROC: 0BH17EZ Insertion of Endotracheal Airway into Trachea, Via Natural or Artificial Opening (ICD-10-PCS; 2020-07-14)
PROC: 009U3ZZ Drainage of Spinal Canal, Percutaneous Approach (ICD-10-PCS; 2020-07-14)
PROC: 4A10X4Z Monitoring of Central Nervous Electrical Activity, External Approach (ICD-10-PCS; 2020-07-18)
PROC: 4A10X4Z Monitoring of Central Nervous Electrical Activity, External Approach (ICD-10-PCS; 2020-07-20)
DX: J96.01 Acute respiratory failure with hypoxia (principal); J69.0 Pneumonitis due to inhalation of food and vomit; G40.901 Epilepsy, unspecified, not intractable, with status epilepticus; G80.9 Cerebral palsy, unspecified; R13.10 Dysphagia, unspecified; R94.01 Abnormal electroencephalogram [EEG]; Z20.822 Contact with and (suspected) exposure to COVID-19; Z79.899 Other long term (current) drug therapy
CPT/HCPCS: 31500; 36415; 36600; 62270; 70450; 71045; 80048; 80053; 80069; 80164; 80202; 80305; 81001; 82803; 82945; 82948; 83605; 83735; 84100; 84132; 84134; 84145; 84157; 84478; 85007; 85018; 85025; 87015; 87040; 87070; 87081; 87088; 87426; 89051; 92508; 92616; 93005; 94002; 94003; 94640; 94760; 94799; 95720; 95816; 97110; 97116; 97161; 97530; 99291; 99292; G0378; J0456; J0461; J0696; J1100; J1650; J1953; J2060; J2560; J2704; J3370; J3475; J3480; J3490; J7030; J7040; J7042; J7060; J7120